=== PATIENT | male | born 1995 | race Two or more races ===

== ENCOUNTER 2020-08-09 18:55 | Emergency (ER) | payer MEDICAID, SELFPAY ==
--- NOTE | ~2020-08-09 | US_ITS ---
EXAMINATION: ANKLE ULTRASOUND CLINICAL INFORMATION: Lower extremity pain with question of Achilles tendon rupture COMPARISON: Ankle radiographs earlier today TECHNIQUE: Linear ultrasound transducer was used to examine the area of the patient's pain in the Achilles tendon. FINDINGS: No abnormality is seen. No evidence of tendon rupture. US/US extremity nonvascular lion IMPRESSION: No significant abnormality is seen
--- NOTE | ~2020-08-09 | XR_ITS ---
EXAMINATION: XR ANKLE, LEFT CLINICAL INFORMATION: Injury COMPARISON: 05/24/2013 TECHNIQUE: AP, lateral, and mortise views of the left ankle. FINDINGS: The bones and soft tissues are normal. No fracture. Alignment is anatomic. Joint spaces are maintained. No joint effusion. XR/XR ankle LT min 3V IMPRESSION: Normal left ankle.
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
[2020-08-09 19:26] VITALS: BP 117/71; BP 150/98; PULSE 69; PULSE 88; RESP 18; TEMP 36; O2SAT 100; O2SAT 99; BMI 29.7
--- NOTE | 2020-08-09 20:52 | ED_ITS ---
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 States that he stepped into a hole his heel went down and his foot was hyperflexed, felt a popping almost ripping feeling in the back of his Achilles tendon and calf. He is unable to bear weight. Does not report any other injuries. MD complaint: leg injury and ankle injury Onset (ago): hour(s) (Within the hour of arrival) Type of Injury: hyperflexion Place: work Severity: severe Severity scale (1-10): 10 Relieving factors: nothing Exacerbating factors: weight bearing, movement and palpation Context: walking Associated symptoms: snap/pop sensation and unable to bear weight Other symptoms: none Related Data Previous Rx's Medication Instructions Recorded oxycodone 5 mg PO Q6H PRN #10 tab 08/09/20 Allergies Allergy/AdvReac Type Severity Reaction Status Date / Time No Known Allergies Allergy Verified 08/09/20 19:26 Review of Systems Review of Systems: Constitutional: No Fever, No Chills ENT/Mouth: No Ear Pain, No Hoarseness, No sore throat Eyes: No Eye Pain, No Swelling, No Redness, No Foreign Body Cardiovascular: No Chest Pain, No SOB Respiratory: No Cough, No Dyspnea Gastrointestinal: No Nausea, No Vomiting, No Diarrhea, No abdominal Pain Genitourinary: No Dysuria, No Hematuria Musculoskeletal: positive left ankle, Achilles, and calf pain, No Myalgias, No Joint Swelling Skin: No Skin lacerations, No rash Neuro: No Weakness, No Numbness, No Paresthesias, No Loss of Consciousness, No Dizziness, No Headache Psych: No Anxiety/Panic, No Depression Heme/Lymph: no easy bruising, no Lymphadenopathy Endocrine: No Polyuria, No Polydipsia Yes all other systems are reviewed and are negative [facility] Past Medical History Attestation statement: The following information was validated with the patient. Source: old records reviewed Social History Social History Advance Directives: No Advance Directives Information Provided: Yes Physical Exam Vital Signs: Vital Signs: Last Vital Signs Temp 97.5 F 06/15/21 23:14 Pulse 75 08/09/20 23:14 Resp 16 08/09/20 23:14 BP 120/74 08/09/20 23:14 Pulse Ox 99 08/09/20 23:14 Body Mass Index 29.7 Appearance: Alert. Oriented X3. No acute distress. Eyes: Pupils equal, round and reactive to light. ENT: Pharynx normal. Neck: Normal inspection. Neck supple. CVS: Normal heart rate and rhythm. Pulses normal. Respiratory: No respiratory distress. Breath sounds normal. Abdomen: Soft and nontender. Skin: Skin warm and dry. Normal skin color. Normal skin turgor. Extremities: Decreased range of motion with flexion and extension internal and external rotation, of left foot and ankle, significant calf tenderness to pressure and palpation, no notable space noted to the Achilles. Neuro: No motor deficit. No sensory deficit. Course Course Course Narrative: 25-year-old male presents with suspected Left Achilles tendon rupture, will ultrasound. Ultrasound is negative. However patient's presentation is positive. Will place in a boot, nonweightbearing, crutches. Discussion with orthopedic PA, plan is for them to follow-up in the office. Patient verbalized understanding of and agrees to plan of care discharge home. Consultations Consultation #1: Jayjay MDM - Extremity Injury (Lower) MDM Narrative Medical decision making narrative: Achilles tendon rupture Differential Diagnosis Differential diagnosis: Likely ankle sprain and strain and ankle fracture Medical Records Attestation: I reviewed the patient's medical records. Imaging Data ultrasound: Attestation: I personally reviewed and interpreted this imaging study as follows: Radiologist's impression: EXAMINATION: ANKLE ULTRASOUND CLINICAL INFORMATION: Lower extremity pain with question of Achilles tendon rupture COMPARISON: Ankle radiographs earlier today TECHNIQUE: Linear ultrasound transducer was used to examine the area of the patient's pain in the Achilles tendon. FINDINGS: No abnormality is seen. No evidence of tendon rupture. US/US extremity nonvascular lion IMPRESSION: No significant abnormality is seen ankle x-ray: Attestation: I personally reviewed and interpreted this imaging study as follows: Radiologist's impression: EXAMINATION: XR ANKLE, LEFT CLINICAL INFORMATION: Injury COMPARISON: 05/24/2013 TECHNIQUE: AP, lateral, and mortise views of the left ankle. FINDINGS: The bones and soft tissues are normal. No fracture. Alignment is anatomic. Joint spaces are maintained. No joint effusion. XR/XR ankle LT min 3V IMPRESSION: Normal left ankle. Discharge Plan Discharge Clinical Impression: Achilles tendon rupture Patient Disposition: Home, Self-Care Instructions: Achilles Tendon Rupture (ED), Achilles Tendinitis (ED) Additional Instructions: You were evaluated for injury to the left lower extremity. It is suspicious for a Achilles tendon rupture. Your ultrasound was negative however your presentation is positive. Please wear the walker boot. Do not put weight on that foot. Use crutches for all ambulation. We prescribed oxycodone which is a narcotic. This medication has high risk for addiction and abuse. Do not drive or operate machinery while taking this medication. This medication is constipating, please use MiraLax and Colace to help soften stools. Follow-up with orthopedics tomorrow. I discussed her case with Lynne ARBOLEDA. she is expecting your call. Thank you for choosing this emergency department for evaluation. Please follow-up with primary care physician as needed. Return to the emergency department for any new, concerning, or worsening symptoms. Prescriptions: New oxycodone 5 mg tablet 5 mg PO Q6H PRN (Reason: pain) Qty: 10 RF: 0 Referrals: Lynne Ro PA-C [[facility]] - 2 days (Achilles tendon rupture) Stand Alone Forms: Work/School Release Interventions: ED Discharge Assessment Last Done: 08/09/20 23:14 Discharge Date/Time: 08/09/20 23:15
[2020-08-09] MEDS: oxyCODONE HCl Immed Release 5 MG TABLET PO (21:23)
[2020-08-09 23:14] VITALS: BP 120/74; PULSE 75; RESP 16; TEMP 36.4; O2SAT 99
== END 2020-08-09 23:15 | disposition home or self-care (01) ==
PROVIDERS: Emergency Provider Internal Medicine
DX: S86.012A Strain of left Achilles tendon, initial encounter (principal); X50.1XXA Overexertion from prolonged static or awkward postures, initial encounter; Y93.89 Activity, other specified; Y92.89 Other specified places as the place of occurrence of the external cause; Y99.0 Civilian activity done for income or pay
CPT/HCPCS: 73610; 76882; 99283; 99284

== ENCOUNTER → 2020-08-11 09:06 | Outpatient (BNVA) | payer MEDICAID, SELFPAY | PROVIDERS: Visit Provider Orthopaedic Surgery | DX: S86.012A Strain of left Achilles tendon, initial encounter (principal) | CPT/HCPCS: 99202 ==

== ENCOUNTER 2020-09-19 14:00 | Outpatient (RCR) | payer MEDICAID, SELFPAY ==
--- NOTE | 2020-08-26 14:19 | MHC.PT.EP ---
[facility] [place] Office [place] Office [place] Office [address] [phone] F: [phone] F: [phone] F: [phone] F: [phone] Physical Therapy Plan of Care Date of Evaluation: Date of Surgery: Diagnosis: L Achilles tendon sprain Assessment: Manfred is a 25 y.o. male referred to PT for L Achilles sprain. On PT examination he presents with 8/10 pain, TTP L Achilles insertion & Deltoid ligament, increased L ankle swelling, decreased L Ankle ROM, decreased L ankle strength, gait deviation, and postural abnormalities. He would benefit from skilled PT for the aforementioned impairements to improve his tolerance for ADL's and work related tasks such as walking, stair negotiation, showering, self care, and cooking, and cleaning. He is motivated for PT. Frequency and Duration: The patient will be seen 2x week for 6 weeks Short Term Goals: 1. In 3 weeks patient will demonstrate improved ROM in all planes to improve his tolerance for dressing and self care. 2. In 3 weeks patient will spend more than 50% of time outside of the walking boot. Skilled Nursing Goals: 1. In 4 weeks patient will demonstrate improved gait mechanics and ability to self correct, demonstrated by the teach back method. 2. In 6 weeks patient will be independent with HEP for symptom management following d/c. Treatment Plan: Modalities to reduce pain, spasms and effusion. Manual therapy to restore motion and function. Therapeutic exercise to improve strength and flexibility. Neuromuscular re-education for posture and balance. Therapeutic activities to return to functional activities of daily living. Electronically signed by: Estela Peña PT, DPT Please sign and return to therapist. Thank you for your referral.
--- NOTE | 2020-09-28 14:24 | MHC.PT.DC ---
[facility] [place] Office [place] Office [place] Office [address] [facility] [phone] F: [phone] F: [phone] F: [phone] F: [phone] Physical Therapy Discharge Report Diagnosis: L Achilles tendon sprain Date of Surgery: Date of Evaluation: 08/26/20 Date of Discharge: 09/28/20 Treatments to Date: 5 Cancellations to Date: 1 No Shows to Date: 5 Discharge Status: Visit Non-compliance Discharge Summary: The patient has had poor visit compliance. He was still reporting high levels of pain but his range and strength were improving. He was tolerating a slow progression to more weightbearing activities including proprioception, balance, and stability work. Per [facility] policy he is being discharged for non-compliance. Electronically signed by: Estela Peña PT, DPT Please sign and return to therapist. Thank you for your referral.
== END 2020-09-28 14:24 | disposition home or self-care (01) ==
LOC: HO.PT 14:00
PROVIDERS: Visit Provider Orthopaedic Surgery
DX: S86.019A Strain of unspecified Achilles tendon, initial encounter (principal)
CPT/HCPCS: 97110; 97112; 97116; 97161; 97530

== ENCOUNTER → 2020-09-26 13:48 | Outpatient (BNVA) | payer MEDICAID, SELFPAY | PROVIDERS: Visit Provider Orthopaedic Surgery | DX: S86.012A Strain of left Achilles tendon, initial encounter (principal); X58.XXXA Exposure to other specified factors, initial encounter; Y93.9 Activity, unspecified; Y92.9 Unspecified place or not applicable; Y99.8 Other external cause status | CPT/HCPCS: 99212 ==

== ENCOUNTER 2021-05-25 10:55 | Emergency (ER) | payer MEDICAID, SELFPAY ==
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
[2021-05-25 11:20] VITALS: BP 121/78; PULSE 100; RESP 16; TEMP 36.8; O2SAT 98; BMI 30.4
[2021-05-25 11:40] LABS: MANUAL DIFF FLAG NO
[2021-05-25 11:41] LABS: Basophils Absolute Auto 0.1 X10*3/uL (0.0-0.2); Basophils Percent Auto 0.8 % (0-2); Eosinophils Absolute Auto 0.1 X10*3/uL (0.0-0.4); Eosinophils Percent Auto 0.8 % (0-4); Hematocrit 44.4 % (42.0-52.0); Hemoglobin 14.3 g/dl (14.0-18.0); Imm Gran Abs Auto 0.02 X10*3/uL (0.00-0.03); Imm Gran Pct Auto 0.3 % (0.0-0.4); Lymphocytes Absolute Auto 1.9 X10*3/uL (1.2-4.9); Lymphocytes Percent Auto 32.5 % (20-40); Mean Corpuscular HGB Conc 32.2 g/dl (31.0-36.0); Mean Corpuscular Hemoglobin 24.2 pg (27.0-33.0); Mean Corpuscular Volume 75.3 fL (80.0-98.0); Mean Platelet Volume 9.7 fL (9.4-12.4); Monocytes Absolute Auto 0.7 X10*3/uL (0.1-1.2); Neutrophils Absolute Auto 3.2 x10*3/uL (2.0-8.3); Neutrophils Percent Auto 54.6 % (45-73); Platelet Count 277 X10*3/uL (160-400); White Blood Count 5.9 X10*3/uL (4.8-10.8)
[2021-05-25 11:59] LABS: Ethanol < 10 mg/dL
[2021-05-25 12:02] LABS: Alanine Aminotransferase 17 U/L (0-40); Albumin Level 4.7 g/dL (3.5-5.0); Alkaline Phosphatase 80 U/L (39-117); Anion Gap 13 (12-20); Aspartate Amino Transferase 17 U/L (5-37); Bilirubin Direct 0.2 mg/dL (0.0-0.5); Bilirubin Total 0.5 mg/dL (0.0-1.0); Blood Urea Nitrogen 9 mg/dL (9-16); Carbon Dioxide 25 mmol/L (22-29); Chloride 107 mmol/L (96-108); Creatinine Clr Calc Pharmacy 132.2; Estimated Glomerular Filt Rate > 60; Glucose Random 98 mg/dL (60-115); Magnesium 2.1 mg/dL (1.6-2.6); Potassium 4.3 mmol/L (3.3-5.1); Sodium 141 mmol/L (135-145); Total Protein 8.1 g/dL (6.5-8.0)
[2021-05-25 12:04] LABS: COVID-19 Test Negative (Negative)
--- NOTE | 2021-05-25 14:43 | MHC.CARE ---
Pt is a 25 year old [place] speaking male who is presently involved in a romantic relationship.? Pt is previously unknown to the CARE Team.? Today, pt called this facility and spoke with the CARE Team, he was advised that he should come to the ED and be seen.? Pt arrived moments later with a complaint of depression and thoughts of self-harm.? CARE Team met with pt after being medically cleared to determine appropriate treatment recommendations, he reports having depression/sadness since the passing of his grandmother in 2017.? He reports being close to his grandmother and her loss was difficult for him.? He stated that his depression was ?manageable? until recently.? Pt stated that approximately a month ago his god son?s mother (Cousin?s former partner) overdosed.? He stated that her Mother took custody of the child (3 years old) and he hasn?t seen him since.? Pt reports that he was close to his godson and had a very good relationship with the child.? This loss of contact with the child has been especially difficult for him. He denies SI, HI, , AVH, and self-harm urges and any history of.? He reports that yesterday he had a fleeting thought of driving his vehicle into something.? The thought entered his mind, and then left.? He reports that he had no intent of doing so but it was concerning enough that he called and later arrived at this facility.? Pt does not appear to have intent to attempt to complete suicide. He reports his sleep as fair, frequently awakening during the night due to racing thoughts and an overactive mind.? He reports his appetite as poor, some days he eats, others he eats some, and yet others he will skip meals.? 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 He reports that he has no therapist or PCP.? He has never been on any medications, has no mental illness diagnosis, no hx of treatment for mental illness.? He reports having had a therapist in high school for anxiety, which he struggles with.? He reports having tried to secure a therapist through [facility] but the wait list is daunting.? He has a great deal of family supports in the form of his Mother, girlfriend, and his cousin Willem. Pt is interested in securing a therapist. Plan is for pt to be discharged home with a safety plan and directions on securing a PCP and therapist.? This disposition was discussed with and agreed upon by CARE Gem Expert Darian DEMPSEY, ED provider Esa Munoz, and pt?s nurse TOÑO Moreau. Step 1: Warning signs: ?? 1.? Depression? 2.? Anxiety? Step 2: ? Internal coping strategies - Things I can do to take my mind off my problems without contacting another person: 1.? Play Video Games? 2.? Watch TV? 3.? Go for a ride? Step 3: People and social settings that can provide distraction: 1.? Name? Nashalee? Phone ? 2.? Name? Isaiah? Phone ? 3.? Place?? Look out at the water? 4.? Place?? [employer] to overlook the city?Step 4: People whom I can ask for help: ? 1.? Name Nashalee? Phone ? 2.? Name Isaiah? Phone ? 3.? Name Willem? Phone ?Step 5: Professionals or agencies I can contact during a crisis: ??? 1.? Clinician Name ???Phone ? 2.? Clinician Name? ?? Phone ? 3.? Suicide Prevention Lifeline: 5-511-107-GDCL (5431) 4.? Crisis Text Line: Text HOME to 317-203 5.? Local Emergency Service Phone/Address: Step 6: Making the environment safe: ? 2.? CARE Team will follow up with a phone call to check in this tomorrow.??? Step 7: Recommendations: ? 1.? Establish a bedtime routine, and try your best not to over sleep. Make your bed a space where only sleeping happens, and set up a separate comfortable space in your house where you can relax, but not sleep. Use an codey in your smart phone to set up a routine for when you fall asleep, wake up, and how long you sleep. a.? Please refer to DBT sleep hygiene for additional information 2.? Contact your employer?s Human Resources department and ask if there is an EAP (Employee Assistance Program) for employees.? If there is, ask for the number and call the Employee Assistance Program to schedule an appointment. 3.? Find a Primary Care Provider. (See list provided) 4.? To find a therapist, go to [facility] on the Internet at: https://www.psychologyCCP Games.com/us On this website, you can search for therapists in your area that will take your insurance (Have your insurance card ready and with you just in case it?s needed) 5.? Avoid using substances as a means of coping with grief/loss.
--- NOTE | 2021-05-26 13:26 | MHC.CARE ---
CARE Team speaks with pt who reports that he is feeling ?Down?.? He is distracting himself through video games.? He has left a message with his employer?s Human Resources Department inquiring about EAP services.? He has not yet reached out to potential providers but stated that he intends to do so and will be using the list provided by CARE Team.? Pt has not yet searched for a therapist via psychology today but stated he will be doing so.? Pt denies any SI, HI, , and self-harm urges. CARE Team discussed with pt the need to secure a PCP and therapist and why.? CARE Team discussed with pt the crisis numbers provided to pt and advised him that should he begin to feel like he did yesterday to utilize those numbers, specifically the [facility] number.? Pt was also advised that he could return to the ED should he begin feeling that way again.
== END 2021-05-25 14:44 | disposition home or self-care (01) ==
PROVIDERS: Physician Assistant; Emergency Provider Emergency Medicine
DX: F32.A Depression, unspecified (principal); R45.851 Suicidal ideations; F41.9 Anxiety disorder, unspecified; Z20.822 Contact with and (suspected) exposure to COVID-19
CPT/HCPCS: 36415; 80048; 80076; 82077; 83735; 85025; 87635; 99284; 99285

== ENCOUNTER 2021-08-30 13:03 | Emergency (ER) | payer OTHER, MEDICAID, SELFPAY ==
--- NOTE | 2021-08-30 13:17 | ED.GENADULT ---
HPI - General Adult General Chief complaint: Fall Stated complaint: fall,dizzy,weak Time Seen by Provider: 08/30/21 13:17 Source: patient Mode of arrival: EMS Limitations: no limitations History of Present Illness HPI narrative: Patient no significant past medical history was at work felt dizzy lightheaded side nausea and weakness denies any alcohol or drug use just feeling weak. No fever no chills patient denies any anxiety or stress Related Data Previous Rx's Medication Instructions Recorded oxycodone 5 mg tablet 5 mg PO Q6H PRN pain #10 tabs 08/09/20 Allergies Allergy/AdvReac Type Severity Reaction Status Date / Time No Known Allergies Allergy Verified 09/26/20 14:03 Review of Systems Review of Systems: Yes all other systems are reviewed and are negative [facility] Past Medical History Medical History Achilles tendon sprain Social History Social History Alcohol intake: current Alcohol intake frequency: holidays/special occasions only Patient Tobacco Use Status: Never used Tobacco Use of substances other than those prescribed or required for medical reasons: Yes Substance Use Type: Marijuana Substance Use Frequency: Monthly Substance Use Frequency Other:: has not in a few days Last Used Substance: Days (ago) Advance Directives: No Advance Directives Information Provided: No Current occupational status: employed Current occupation: rt handed/[employer] Physical Exam ED Vital Signs: Vital Signs - 24 hr 08/30/21 13:29 08/30/21 14:00 Temperature 98.0 F Pulse Rate 75 72 Respiratory Rate 16 16 Blood Pressure 116/73 116/75 Pulse Oximetry 98 98 Oxygen Delivery Method Room Air Room Air BMI result Body Mass Index 30.4 Appearance: Alert. Oriented X3. No acute distress. Eyes: PERRLA, No Nystagmus ENT: Pharynx normal. Oral Mucosa moist Neck: Normal inspection. Neck supple. CVS: Normal heart rate and rhythm. Pulses normal. Respiratory: No respiratory distress. Equal air entry bilateral, no wheezing/rales/rhonchi Abdomen: Soft and nontender. Bowel sounds are present, no mass palpable, no CVA tenderness Skin: Skin warm and dry. Normal skin color. Normal skin turgor. Extremities: No lower extremity edema. No calf tenderness Neuro: Oriented X 3. No motor deficit. No sensory deficit.No cerebellar signs , cranial nerves II-XII intact Medical Decision Making MDM Narrative Medical decision making narrative: Patient with atypical symptoms? Psychogenic versus substance abuse but patient refused we checked the UA , also possible patient had heat exhaustion Patient feeling better after IV fluids and discharge patient home Lab Data Lab results reviewed: Yes I reviewed the patient's lab results. Result diagrams: 08/30/21 14:19 08/30/21 14:19 Labs: Lab Results 08/30/21 08/30/21 08/30/21 Range/Units 14:19 14:19 14:19 WBC 8.3 (4.8-10.8) X10*3/uL RBC 5.38 (4.60-5.80) X10*6/uL Hgb 12.3 L (14.0-18.0) g/dl Hct 39.0 L (42.0-52.0) % MCV 72.5 L (80.0-98.0) fL MCH 22.9 L (27.0-33.0) pg MCHC 31.5 (31.0-36.0) g/dl RDW 14.3 (11.0-16.0) % Plt Count 253 (160-400) X10*3/uL MPV 9.6 (9.4-12.4) fL Immature Gran % (Auto) 0.4 (0.0-0.4) % Neut % (Auto) 66.5 (45-73) % Lymph % (Auto) 20.8 (20-40) % [place] % (Auto) 11.2 H (2-11) % Eos % (Auto) 0.7 (0-4) % Baso % (Auto) 0.4 (0-2) % Lymph # (Auto) 1.7 (1.2-4.9) X10*3/uL [place] # (Auto) 0.9 (0.1-1.2) X10*3/uL Eos # (Auto) 0.1 (0.0-0.4) X10*3/uL Baso # (Auto) 0.0 (0.0-0.2) X10*3/uL Abs Immat Gran (auto) 0.03 (0.00-0.03) X10*3/uL Absolute Neuts (auto) 5.5 (2.0-8.3) x10*3/uL Absolute Nucleated RBC 0.000 (0.0-0.012) X10*3/uL Nucleated RBC % (auto) 0.0 (0.0-0.2) /100WBC Sodium 141 (135-145) mmol/L Potassium 3.4 D (3.3-5.1) mmol/L Chloride 109 H (96-108) mmol/L Carbon Dioxide 27 (22-29) mmol/L Anion Gap 8 L (12-20) BUN 8 L (9-16) mg/dL Creatinine 0.86 (0.5-1.4) mg/dL Estim Creat Clear Calc 144.8 Estimated GFR > 60 Random Glucose 106 (60-115) mg/dL Calcium 9.0 D (8.4-10.2) mg/dL Total Bilirubin 0.6 (0.0-1.0) mg/dL AST 18 (5-37) U/L ALT 16 (0-40) U/L Alkaline Phosphatase 69 (39-117) U/L Total Creatine Kinase 214 H (38-174) U/L Total Protein 6.8 (6.5-8.0) g/dL Albumin 4.2 (3.5-5.0) g/dL Urine Color Urine Appearance Urine pH (5.0-8.0) Ur Specific [place] (1.005-1.025) Urine Protein (NEG-TRACE) MG/DL Urine Glucose (UA) (NEG) MG/DL Urine Ketones (NEG) MG/DL Urine Blood (NEG) Urine Nitrite (NEG) Ur Leukocyte Esterase (NEG) Urine Opiates Screen (Not Detect) Urine Fentanyl Screen (Not Detect) Ur Barbiturates Screen (Not Detect) Ur Phencyclidine Scrn (Not Detect) Ur Amphetamines Screen (Not Detect) U Benzodiazepines Scrn (Not Detect) Urine Cocaine Screen (Not Detect) U Marijuana (THC) Screen (Not Detect) COVID-19 ([facility]) Negative (Negative) COVID-19 Clin Com See Note 08/30/21 08/30/21 Range/Units 14:58 14:58 WBC (4.8-10.8) X10*3/uL RBC (4.60-5.80) X10*6/uL Hgb (14.0-18.0) g/dl Hct (42.0-52.0) % MCV (80.0-98.0) fL MCH (27.0-33.0) pg MCHC (31.0-36.0) g/dl RDW (11.0-16.0) % Plt Count (160-400) X10*3/uL MPV (9.4-12.4) fL Immature Gran % (Auto) (0.0-0.4) % Neut % (Auto) (45-73) % Lymph % (Auto) (20-40) % [place] % (Auto) (2-11) % Eos % (Auto) (0-4) % Baso % (Auto) (0-2) % Lymph # (Auto) (1.2-4.9) X10*3/uL [place] # (Auto) (0.1-1.2) X10*3/uL Eos # (Auto) (0.0-0.4) X10*3/uL Baso # (Auto) (0.0-0.2) X10*3/uL Abs Immat Gran (auto) (0.00-0.03) X10*3/uL Absolute Neuts (auto) (2.0-8.3) x10*3/uL Absolute Nucleated RBC (0.0-0.012) X10*3/uL Nucleated RBC % (auto) (0.0-0.2) /100WBC Sodium (135-145) mmol/L Potassium (3.3-5.1) mmol/L Chloride (96-108) mmol/L Carbon Dioxide (22-29) mmol/L Anion Gap (12-20) BUN (9-16) mg/dL Creatinine (0.5-1.4) mg/dL Estim Creat Clear Calc Estimated GFR Random Glucose (60-115) mg/dL Calcium (8.4-10.2) mg/dL Total Bilirubin (0.0-1.0) mg/dL AST (5-37) U/L ALT (0-40) U/L Alkaline Phosphatase (39-117) U/L Total Creatine Kinase (38-174) U/L Total Protein (6.5-8.0) g/dL Albumin (3.5-5.0) g/dL Urine Color YELLOW Urine Appearance CLEAR Urine pH 6.5 (5.0-8.0) Ur Specific [place] 1.020 (1.005-1.025) Urine Protein NEG (NEG-TRACE) MG/DL Urine Glucose (UA) NEG (NEG) MG/DL Urine Ketones 15 (NEG) MG/DL Urine Blood NEG (NEG) Urine Nitrite NEG (NEG) Ur Leukocyte Esterase NEG (NEG) Urine Opiates Screen Not Detected (Not Detect) Urine Fentanyl Screen Not Detected (Not Detect) Ur Barbiturates Screen Not Detected (Not Detect) Ur Phencyclidine Scrn Not Detected (Not Detect) Ur Amphetamines Screen Not Detected (Not Detect) U Benzodiazepines Scrn Not Detected (Not Detect) Urine Cocaine Screen Not Detected (Not Detect) U Marijuana (THC) Screen POSITIVE H (Not Detect) COVID-19 ([facility]) (Negative) COVID-19 Clin Com ECG Data Attestation: I personally reviewed and interpreted this ECG as follows: Interpretation: Normal sinus rhythm heart rate 69 beats per minute PACs present normal QRS interval no acute ischemic changes Discharge Plan Discharge Clinical Impression: Heat exhaustion, Vasovagal near syncope Patient Disposition: Home, Self-Care Instructions: Heat Exhaustion (ED), Near Syncope (ED) Additional Instructions: Drink plenty of fluids Stay in shaded area Follow-up with PCP if any concerns Prescriptions: No Action oxycodone 5 mg tablet 5 mg PO Q6H PRN (Reason: pain) Qty: 10 0RF Rx Instructions: Achilles tendon rupture
[2021-08-30 13:29] VITALS: BP 116/73; BP 128/82; PULSE 75; PULSE 90; RESP 16; TEMP 36.7; O2SAT 100; O2SAT 98; BMI 30.4
[2021-08-30] MEDS: 0.9 % Sodium Chloride 1,000 ML 999 ML IV (13:46)
--- NOTE | 2021-08-30 13:50 | ECG_ITS ---
Test Reason : syncope Blood Pressure : / mmHG Vent. Rate : 069 BPM Atrial Rate : 069 BPM P-R Int : 160 ms QRS Dur : 094 ms QT Int : 420 ms P-R-T Axes : 032 021 002 degrees QTc Int : 450 ms Sinus rhythm with Premature atrial complexes Otherwise normal ECG No previous ECGs available Referred By: Maurice Dockery Electronically Signed By:Karlos Wan
[2021-08-30 14:00] VITALS: BP 116/75; PULSE 72; RESP 16; O2SAT 98
[2021-08-30 14:23] LABS: MANUAL DIFF FLAG NO
[2021-08-30 14:24] LABS: Basophils Percent Auto 0.4 % (0-2); Eosinophils Absolute Auto 0.1 X10*3/uL (0.0-0.4); Eosinophils Percent Auto 0.7 % (0-4); Hemoglobin 12.3 g/dl (14.0-18.0); Imm Gran Abs Auto 0.03 X10*3/uL (0.00-0.03); Imm Gran Pct Auto 0.4 % (0.0-0.4); Lymphocytes Absolute Auto 1.7 X10*3/uL (1.2-4.9); Lymphocytes Percent Auto 20.8 % (20-40); Mean Corpuscular HGB Conc 31.5 g/dl (31.0-36.0); Mean Corpuscular Hemoglobin 22.9 pg (27.0-33.0); Mean Corpuscular Volume 72.5 fL (80.0-98.0); Mean Platelet Volume 9.6 fL (9.4-12.4); Monocytes Absolute Auto 0.9 X10*3/uL (0.1-1.2); Monocytes Percent Auto 11.2 % (2-11); Neutrophils Absolute Auto 5.5 x10*3/uL (2.0-8.3); Neutrophils Percent Auto 66.5 % (45-73); Platelet Count 253 X10*3/uL (160-400); Red Blood Count 5.38 X10*6/uL (4.60-5.80); Red Cell Distribution Width 14.3 % (11.0-16.0); White Blood Count 8.3 X10*3/uL (4.8-10.8)
[2021-08-30 14:43] LABS: COVID-19 Test Negative (Negative)
[2021-08-30 14:48] LABS: Alanine Aminotransferase 16 U/L (0-40); Albumin Level 4.2 g/dL (3.5-5.0); Alkaline Phosphatase 69 U/L (39-117); Anion Gap 8 (12-20); Aspartate Amino Transferase 18 U/L (5-37); Bilirubin Total 0.6 mg/dL (0.0-1.0); Blood Urea Nitrogen 8 mg/dL (9-16); Carbon Dioxide 27 mmol/L (22-29); Chloride 109 mmol/L (96-108); Creatinine Clr Calc Pharmacy 144.8; Estimated Glomerular Filt Rate > 60; Glucose Random 106 mg/dL (60-115); Potassium 3.4 mmol/L (3.3-5.1); Sodium 141 mmol/L (135-145); Total Protein 6.8 g/dL (6.5-8.0)
[2021-08-30 15:17] LABS: Appearance Urine CLEAR; Color Urine YELLOW; Glucose Urine UA NEG (NEG); Leukocyte Esterase Urine NEG (NEG); Nitrite Urine NEG (NEG); PH 6.5 (5.0-8.0); Urine Blood NEG (NEG); Urine Ketones 15 MG/DL (NEG); Urine Protein NEG (NEG-TRACE)
[2021-08-30 15:29] LABS: Amphetamine Screen Urine Not Detected (Not Detect); Barbiturates, Urine Not Detected (Not Detect); Benzodiazepines Screen Urine Not Detected (Not Detect); Cannabinoid Screen Urine POSITIVE (Not Detect); Cocaine Screen Urine Not Detected (Not Detect); Fentanyl, urine Not Detected (Not Detect); Opiate Screen Urine Not Detected (Not Detect); Phencyclidine Screen Urine Not Detected (Not Detect)
[2021-08-30 15:57] VITALS: BP 105/80; PULSE 72; RESP 14; TEMP 37.1; O2SAT 97
== END 2021-08-30 16:39 | disposition home or self-care (01) ==
PROVIDERS: Emergency Provider Internal Medicine
DX: R55 Syncope and collapse (principal); T67.5XXA Heat exhaustion, unspecified, initial encounter; X58.XXXA Exposure to other specified factors, initial encounter; Z20.822 Contact with and (suspected) exposure to COVID-19; F12.90 Cannabis use, unspecified, uncomplicated; Y93.9 Activity, unspecified; Y92.59 Other trade areas as the place of occurrence of the external cause; Y99.0 Civilian activity done for income or pay
CPT/HCPCS: 36415; 80053; 80307; 81003; 82550; 85025; 87635; 93005; 96360; 99284

== ENCOUNTER 2021-09-19 15:06 | Outpatient (REF) | payer MEDICAID, SELFPAY ==
--- NOTE | ~2021-09-19 | US_ITS ---
EXAMINATION: US ABDOMEN COMPLETE CLINICAL INFORMATION: Right upper quadrant pain. COMPARISON: CT abdomen and pelvis with contrast dated 04/17/2018. TECHNIQUE: Real-time imaging of the abdominal viscera. FINDINGS: PANCREAS: Normal. ABDOMINAL AORTA: The proximal, mid, and distal segments are normal in caliber. INFERIOR VENA CAVA: Visualized portions are normal. LIVER: The liver is normal in size. The liver contour is normal. There is mild increased liver echogenicity. No focal hepatic lesion. There is no intrahepatic biliary duct dilatation seen. GALLBLADDER: The gallbladder is physiologically distended. There are 2 echogenic stones in the neck of the gallbladder, nonmobile in decubitus position. No evidence of gallbladder wall thickening or pericholecystic fluid. COMMON BILE DUCT: Normal in caliber measuring 0.3 cm in diameter. RIGHT KIDNEY: Normal. No hydronephrosis. No renal calculi or focal parenchymal lesions. The kidney measures 10.6 cm in maximum dimension. LEFT KIDNEY: Normal. No hydronephrosis. No renal calculi or focal parenchymal lesions. The kidney measures 11.5 cm in maximum dimension. SPLEEN: Normal. The spleen measures 9.3 cm in maximum dimension. FREE FLUID: None. US/US abdomen complete IMPRESSION: Cholelithiasis without wall thickening. No wall thickness, pericholecystic fluid collection or tenderness. Mildly echogenic liver. Rest of the abdominal ultrasound is unremarkable.
== END 2021-09-19 15:07 | disposition home or self-care (01) ==
LOC: HO.US 15:06
PROVIDERS: Visit Provider Emergency Medicine
DX: R10.11 Right upper quadrant pain (principal)
CPT/HCPCS: 76700

== ENCOUNTER 2021-11-03 11:40 | Outpatient (REF) | payer MEDICAID, SELFPAY | END 2021-11-03 11:41 | disposition home or self-care (01) | LOC: HO.LAB 11:40 | PROVIDERS: Visit Provider Nurse Practitioner | DX: R11.2 Nausea with vomiting, unspecified (principal); K80.20 Calculus of gallbladder without cholecystitis without obstruction | CPT/HCPCS: 99202; 99212 ==

== ENCOUNTER 2021-11-07 09:36 | Outpatient (REF) | payer MEDICAID, SELFPAY ==
[2021-11-07 10:40] LABS: MANUAL DIFF FLAG NO
[2021-11-07 12:10] LABS: Basophils Absolute Auto 0.1 X10*3/uL (0.0-0.2); Basophils Percent Auto 0.7 % (0-2); Eosinophils Absolute Auto 0.2 X10*3/uL (0.0-0.4); Eosinophils Percent Auto 2.3 % (0-4); Hemoglobin 13.7 g/dl (14.0-18.0); Imm Gran Abs Auto 0.03 X10*3/uL (0.00-0.03); Imm Gran Pct Auto 0.4 % (0.0-0.4); Lymphocytes Absolute Auto 1.6 X10*3/uL (1.2-4.9); Lymphocytes Percent Auto 21.4 % (20-40); Mean Corpuscular HGB Conc 31.1 g/dl (31.0-36.0); Mean Corpuscular Hemoglobin 22.5 pg (27.0-33.0); Mean Corpuscular Volume 72.2 fL (80.0-98.0); Mean Platelet Volume 10.5 fL (9.4-12.4); Monocytes Absolute Auto 0.9 X10*3/uL (0.1-1.2); Monocytes Percent Auto 12.3 % (2-11); Neutrophils Absolute Auto 4.8 x10*3/uL (2.0-8.3); Neutrophils Percent Auto 62.9 % (45-73); Platelet Count 284 X10*3/uL (160-400); Red Blood Count 6.09 X10*6/uL (4.60-5.80); Red Cell Distribution Width 15.2 % (11.0-16.0); White Blood Count 7.7 X10*3/uL (4.8-10.8)
[2021-11-07 12:37] LABS: Alanine Aminotransferase 17 U/L (0-40); Albumin Level 4.6 g/dL (3.5-5.0); Alkaline Phosphatase 82 U/L (39-117); Anion Gap 13 (12-20); Aspartate Amino Transferase 17 U/L (5-37); Bilirubin Total 0.7 mg/dL (0.0-1.0); Blood Urea Nitrogen 10 mg/dL (9-16); C Reactive Protein 0.53 mg/dL (< or = 0.50); Calcium 9.9 mg/dL (8.4-10.2); Carbon Dioxide 28 mmol/L (22-29); Chloride 104 mmol/L (96-108); Estimated Glomerular Filt Rate > 60; Glucose Random 82 mg/dL (60-115); Potassium 4.3 mmol/L (3.3-5.1); Sodium 141 mmol/L (135-145); Total Protein 7.5 g/dL (6.5-8.0)
[2021-11-09 12:57] LABS: Transglutaminase Ab IgG <1.0 U/mL; Transglutaminase IgA <1.0 U/mL
== END 2021-11-07 09:37 | disposition home or self-care (01) ==
LOC: HO.LAB 09:36
PROVIDERS: Absent Provider Nurse Practitioner; Visit Provider Surgery
DX: R11.2 Nausea with vomiting, unspecified (principal); K80.20 Calculus of gallbladder without cholecystitis without obstruction
CPT/HCPCS: 36415; 80053; 85025; 86140; 86364; 99202

== ENCOUNTER 2021-11-13 11:49 | Outpatient (REF) | payer MEDICAID, SELFPAY ==
[2021-11-13 14:26] LABS: Adenovirus F 40/41 Not Detected (Not Detect.); Astrovirus Not Detected (Not Detect.); Campylobacter Not Detected (Not Detect.); Cryptosporidium Not Detected (Not Detect.); Cyclospora cayetanensis Not Detected (Not Detect.); E. coli EAEC Not Detected (Not Detect.); E. coli EPEC Not Detected (Not Detect.); E. coli ETEC Not Detected (Not Detect.); E. coli STEC Not Detected (Not Detect.); Entamoeba histolytica Not Detected (Not Detect.); Giardia lamblia Not Detected (Not Detect.); Norovirus GI/GII Not Detected (Not Detect.); Plesiomonas shigelloides Not Detected (Not Detect.); Rotavirus A Not Detected (Not Detect.); Salmonella Not Detected (Not Detect.); Sapovirus Not Detected (Not Detect.); Shigella sp./EIEC Not Detected (Not Detect.); Vibrio Not Detected (Not Detect.); Vibrio Cholerae Not Detected (Not Detect.); Yersinia enterocolitica Not Detected (Not Detect.)
[2021-11-19 18:47] LABS: Pancreatic Elastase-1 >500 mcg/g
== END 2021-11-13 11:50 | disposition home or self-care (01) ==
LOC: HO.LNP 11:49
PROVIDERS: Visit Provider Nurse Practitioner
DX: R11.2 Nausea with vomiting, unspecified (principal); K80.20 Calculus of gallbladder without cholecystitis without obstruction
CPT/HCPCS: 82656; 87507

== ENCOUNTER → 2021-11-20 08:18 | Outpatient (REF) | payer MEDICAID, SELFPAY ==
--- NOTE | ~2021-11-20 | NM_ITS ---
EXAMINATION: BILIARY TRACT IMAGING STUDY WITH CCK ALTERNATIVE (SUPPLEMENT-STIMULATED CHOLESCINTIGRAPHY). CLINICAL INFORMATION: Nausea and vomiting.. COMPARISON: Abdominal ultrasound done on 09/19/2021.. TECHNIQUE: Serial gamma scintillation camera images were obtained over the abdomen for a total observation period of 60 minutes following the intravenous administration of 5 mCi Tc-99m mebrofenin. FINDINGS: There is good concentration of activity in the liver by 5 minutes post injection. Biliary activity is visualized by 8 minutes. The gallbladder is well visualized by 15 minutes. Small bowel is well visualized by 55 minutes. At 60 minutes post radiopharmaceutical injection, following injection of 8 ounces of Ensure, an additional 60 minutes of images were obtained. There is good emptying of the gallbladder. By the end of the study there is good clearance of activity from the liver and visualization of diffuse small bowel activity. The calculated gallbladder ejection fraction is 53% (normal gallbladder ejection fraction is greater than 33%). Please note that due to non-availability of CCK, alternative methodology using a lactose-free Fatty-meal food supplement (8 ounces of Ensure) was used (Reference article: Journal of nuclear medicine 2003; 44:8209-8533). NM/NM hepatobiliary wo pharm IMPRESSION: Visualization of the gallbladder is evidence of a patent cystic duct and strong evidence against the diagnosis of acute cholecystitis. The common bile duct is patent. Gallbladder emptying and ejection fraction are normal. Liver function appears normal.
== END ==
LOC: HO.NUCMED 08:18
PROVIDERS: Visit Provider Nurse Practitioner
DX: K80.20 Calculus of gallbladder without cholecystitis without obstruction (principal); R11.2 Nausea with vomiting, unspecified
CPT/HCPCS: 78226; A9537

== ENCOUNTER → 2021-12-01 11:26 | Outpatient (BNVA) | payer MEDICAID, SELFPAY | PROVIDERS: Visit Provider Surgery | DX: K80.20 Calculus of gallbladder without cholecystitis without obstruction (principal); R11.2 Nausea with vomiting, unspecified; R19.7 Diarrhea, unspecified; K21.9 Gastro-esophageal reflux disease without esophagitis | CPT/HCPCS: 99212 ==

== ENCOUNTER 2022-01-21 04:53 | Inpatient (IN) | payer MEDICAID, SELFPAY ==
[2022-01-21] VITALS (9 sets, daily range): BP systolic 108–148; BP diastolic 66–84; PULSE 57–74; RESP 12–20; TEMP 36.6–36.7; O2SAT 97–99; BMI 28.8; BMI 30.9
--- NOTE | ~2022-01-21 | CT_ITS ---
EXAMINATION: CT ABDOMEN AND PELVIS WITH CONTRAST CLINICAL INFORMATION: Right upper quadrant pain. Rule out biliary disease. COMPARISON: 04/17/2018 TECHNIQUE: Multidetector volumetric images were obtained from the superior aspect of the liver through the pubic symphysis following administration 85 mL of Omnipaque 350 intravenous contrast. Sagittal and coronal reformatted images were obtained on the technologist's workstation. Oral contrast: No This CT examination was performed using dose optimization techniques as appropriate, variously including the following: *Automated exposure control *Adjustment of mA and/or kV according to patient size (this includes techniques or standardized protocols for targeted exams where dose is matched to indication/reason for exam; i.e. extremities or head) *Use of iterative reconstruction technique DLP: 642 mGy-cm FINDINGS: LUNG BASES: The visualized lung bases are unremarkable. LIVER, GALLBLADDER, AND BILIARY TREE: The liver is normal in size, shape, and attenuation. No focal hepatic lesion or biliary ductal dilatation is present. Normally distended gallbladder. No stones are seen. There appears to be a tiny amount of pericholecystic fluid, particularly near the fundus. PANCREAS: Unremarkable. SPLEEN: Unremarkable. ADRENAL GLANDS: Unremarkable. KIDNEYS AND URETERS: The kidneys are normal in size, shape, and attenuation. No hydronephrosis, hydroureter, or calculi seen. No perinephric stranding. BLADDER: Unremarkable. GASTROINTESTINAL TRACT: The stomach is unremarkable. Normal caliber small bowel. No obstruction. Normal appendix. No colonic wall thickening or inflammation. No free air or free fluid. ABDOMINAL WALL: No significant hernia is appreciated. LYMPH NODES: Normal. VASCULAR: Unremarkable. PELVIC VISCERA: The prostate and seminal vesicles are unremarkable. OSSEOUS STRUCTURES: Unremarkable. CT/CT abdomen pelvis w IV con IMPRESSION: 1. There appears to be a tiny amount of pericholecystic fluid, particularly near the fundus. No stones are seen. Consider further evaluation with ultrasound. 2. No biliary ductal dilatation. Normal appearance of the liver. Fleischner guidelines were followed.
--- NOTE | ~2022-01-21 | US_ITS ---
EXAMINATION: US ABDOMEN LIMITED CLINICAL INFORMATION: Pain. COMPARISON: None TECHNIQUE: Real-time imaging of the right upper quadrant abdominal viscera. FINDINGS: PANCREAS: Normal. LIVER: Normal. The liver is normal in size. The liver contour is normal. Parenchymal echogenicity is normal. No focal hepatic lesion. There is no intrahepatic biliary duct dilatation seen. There is hepatopedal flow seen in the portal vein. GALLBLADDER: There are 2 echogenic stones. Echogenic impacted stones seen in the neck measuring 1.2 x 0.9 x 1.0 cm. The gallbladder is physiologically distended without evidence of stones, sludge, polyps, wall thickening or pericholecystic fluid. COMMON BILE DUCT: Normal in caliber measuring 0.23 cm in diameter. RIGHT KIDNEY: Normal. No hydronephrosis. No renal calculi or focal parenchymal lesions. The kidney measures 9.9 cm in maximum dimension. FREE FLUID: None. US/US abdomen limited IMPRESSION: 1. Cholelithiasis with an impacted stone in the neck. No wall thickening or pericholecystic fluid collection seen. 2. Visualized pancreas, liver, CBD and right kidney appears unremarkable.
[2022-01-21 05:22] LABS: MANUAL DIFF FLAG NO
[2022-01-21 05:23] LABS: Basophils Absolute Auto 0.1 X10*3/uL (0.0-0.2); Basophils Percent Auto 0.6 % (0-2); Eosinophils Absolute Auto 0.4 X10*3/uL (0.0-0.4); Eosinophils Percent Auto 3.3 % (0-4); Hematocrit 43.2 % (42.0-52.0); Hemoglobin 13.7 g/dl (14.0-18.0); Imm Gran Abs Auto 0.03 X10*3/uL (0.00-0.03); Imm Gran Pct Auto 0.3 % (0.0-0.4); Lymphocytes Absolute Auto 3.9 X10*3/uL (1.2-4.9); Mean Corpuscular HGB Conc 31.7 g/dl (31.0-36.0); Mean Corpuscular Hemoglobin 22.7 pg (27.0-33.0); Mean Corpuscular Volume 71.5 fL (80.0-98.0); Mean Platelet Volume 9.5 fL (9.4-12.4); Monocytes Percent Auto 8.8 % (2-11); Neutrophils Absolute Auto 5.7 x10*3/uL (2.0-8.3); Platelet Count 281 X10*3/uL (160-400); Red Blood Count 6.04 X10*6/uL (4.60-5.80); Red Cell Distribution Width 14.6 % (11.0-16.0); White Blood Count 11.1 X10*3/uL (4.8-10.8)
--- NOTE | 2022-01-21 05:35 | PC.NURSE ---
Pt states that RUQ abdominal pain began about an hour ago. He tried to drink some water but states that it resulted in no relief of symptoms. Pain is accompanied by nausea. Pt denies vomiting, constipation, diarrhea. Pt describes pain as a sharp shooting pain. Pt seems a bit restless and is guarding the affected area.
[2022-01-21 05:52] LABS: Alanine Aminotransferase 10 U/L (0-40); Albumin Level 4.5 g/dL (3.5-5.0); Alkaline Phosphatase 67 U/L (39-117); Anion Gap 15 (12-20); Aspartate Amino Transferase 16 U/L (5-37); Bilirubin Total 0.3 mg/dL (0.0-1.0); Blood Urea Nitrogen 13 mg/dL (9-16); Calcium 9.6 mg/dL (8.4-10.2); Carbon Dioxide 24 mmol/L (22-29); Chloride 103 mmol/L (96-108); Creatinine Clr Calc Pharmacy 138.2; Estimated Glomerular Filt Rate > 60; Glucose Random 103 mg/dL (60-115); Lipase 25 U/L (8-78); Potassium 3.7 mmol/L (3.3-5.1); Sodium 138 mmol/L (135-145); Total Protein 7.8 g/dL (6.5-8.0)
[2022-01-21] MEDS: 0.9 % Sodium Chloride 1,000 ML 999 ML IV (06:00)
[2022-01-21] MEDS: Ketorolac Tromethamine 15 MG/ML VIAL IVPUSH (06:08)
[2022-01-21] MEDS: ondansetron HCL 4 MG/2 ML VIAL IVPUSH (06:08)
[2022-01-21 06:18] LABS: Appearance Urine Clear; Color Urine Yellow; Glucose Urine UA Negative (Negative); Leukocyte Esterase Urine Negative (Negative); Nitrite Urine Negative (Negative); Urine Blood Negative (Negative); Urine Ketones Negative (Negative); Urine Protein Negative (Neg-Trace)
[2022-01-21 06:21] LABS: COVID-19 Test Negative (Negative); IDNOW Serial# BCCEAD1C
[2022-01-21] MEDS: iohexoL 350 MG/ML 100 ML INFUS..BTL 85 ML IV (06:34)
--- NOTE | 2022-01-21 06:57 | ED.ABDPAIN ---
HPI - Abdominal Pain General Chief Complaint: Abdominal Pain Stated Complaint: R abdominal, back pain Time Seen by Provider: 01/21/22 06:50 Source: patient Mode of arrival: ambulatory Limitations: no limitations History of Present Illness HPI narrative: 26-year-old male came in for evaluation of right-sided abdominal pain. Pain started a week ago, described as a constant dull aching pain to the right side of the abdomen, pain is constant and severe 10/10, no radiation, no relieving factor, no aggravating factor, food does not affect the pain, pain is more less in the right upper quadrant area, had similar symptoms in the past, never had abdominal surgery in the past. Related Data Previous Rx's Medication Instructions Recorded omeprazole 40 mg capsule,delayed 40 mg PO DAILY 30 days #30 caps 11/03/21 release dicyclomine 20 mg tablet 20 mg PO QID 30 days #120 tabs 12/01/21 famotidine 40 mg tablet (Pepcid) 40 mg PO BEDTIME #30 tabs 12/01/21 Allergies Allergy/AdvReac Type Severity Reaction Status Date / Time No Known Allergies Allergy Verified 01/21/22 06:12 Review of Systems Review of Systems All other systems are reviewed and are negative Constitutional: Reports as per HPI and Reports no additional constitutional complaints Eyes: Reports as per HPI and Reports no additional eye complaints Reports system reviewed and no additional complaints, except as documented Cardiovascular: Reports as per HPI and Reports no additional cardiovascular complaints Respiratory: Reports as per HPI and Reports no additional respiratory complaints Gastrointestinal: Reports as per HPI and Reports no additional gastrointestinal complaints Genitourinary: Reports no additional female genitourinary complaints Musculoskeletal: Reports no additional musculoskeletal complaints Skin/Breast: Reports system reviewed and no additional complaints, except as docu Psychiatric: Reports no additional psychiatric complaints Endocrine: Reports no additional endocrine complaints Hematologic/Lymphatic: Reports no additional hematologic/lymphatic complaints Allergic/Immunologic: Reports no additional allergic/immunologic complaints Reports system reviewed and no additional complaints, except as documented and Reports Abnormal speech present [facility] Past Medical History Medical History Achilles tendon sprain Gallstones Social History Social History Household Members: Family Alcohol intake: current Alcohol intake frequency: holidays/special occasions only Alcohol type: beer Patient Tobacco Use Status: Never used Tobacco Smoked in Last 30 Days: No Substance Use Type: Marijuana Substance Use Frequency: Daily Substance Use Frequency Other:: 2x/day Advance Directives: No Advance Directives Information Provided: No Current occupational status: employed Current occupation: rt handed/[employer] Physical Exam ED Vital Signs: Vital Signs - 24 hr 01/21/22 04:58 01/21/22 05:33 01/21/22 06:00 Temperature 97.8 F 98.0 F Pulse Rate 64 58 74 Respiratory Rate 20 15 13 Blood Pressure 131/83 116/72 123/75 Pulse Oximetry 99 98 97 Oxygen Delivery Method Room Air Room Air Room Air 01/21/22 07:27 01/21/22 07:29 Temperature 98.0 F Pulse Rate 68 73 Respiratory Rate 12 14 Blood Pressure 109/68 108/66 Pulse Oximetry 98 97 Oxygen Delivery Method Room Air Room Air BMI result Body Mass Index 28.8 Vital signs have been reviewed as appeared to be correct. Blood pressure normal. Heart rate normal. Respiration rate normal. Temperature normal. Oxygen saturation normal. Appearance: Alert. Oriented X3. No acute distress. Head: Normal external exam. Normocephalic. Atraumatic. No Fletcher signs noted. No raccoon eyes noted Eyes: PERRLA. EOMI. Conjunctiva and sclera normal. Eyelids normal. ENT: TM's Normal. Pharynx normal. Uvula midline. Moist mucous membranes. No trismus noted. No drooling noted. No muffled voice noted. Neck: Normal inspection. Neck supple. FROM. No adenopathy. Thyroid Normal. No meningeal signs. No neck mass noted. CVS: Normal heart rate and rhythm. Heart sound normal. No murmurs noted. Pulses normal throughout. Respiratory: No respiratory distress. Painless inspiration. Breath sounds normal. No wheezes/rales/rhonchi noted. Chest nontender. No accessory muscle usage noted or decreased air movement noted. Abdomen: Soft, right upper quadrant tenderness, no rebound tenderness, no guarding.. Bowel sounds normal in all 4 quadrants. No distention noted. No organomegaly noted. No visible injury noted. Back: No CVA tenderness. Full range of motion noted. Skin: Skin warm and dry. Normal skin color. Normal skin turgor. No rashes/lesions/lacerations noted. Extremities: No lower extremity edema. Extremities exhibit normal range of motion. Extremities nontender. Neuro: Oriented X 3. Cranial nerve exam: II-XII are grossly intact No motor deficit. No sensory deficit. Reflexes normal. Course Course Course Narrative: 26-year-old male came in for right upper quadrant abdominal pain for the past 5 days, patient's exam is consistent with gallbladder problem, ultrasound showed cholelithiasis with impacted gallstone in the gallbladder neck, patient was evaluated in the ED by Dr. Pierre and patient will be admitted to the surgical service. Medications Administered Discontinued Medications Generic Name Dose Route Start Last Admin Trade Name Freq PRN Reason Stop Dose Admin Sodium Chloride 1,000 mls @ 999 mls/hr 01/21/22 05:51 01/21/22 07:24 Ns IV 01/21/22 06:51 Infused .Q1H1M STA Infusion Iohexol 85 ml 01/21/22 06:34 01/21/22 06:34 Iohexol 350 Mg/Ml 100 Ml Infus..Btl IV 01/21/22 06:35 85 ml ONCE ONE Administration Ketorolac Tromethamine 15 mg 01/21/22 05:51 01/21/22 06:08 Ketorolac Tromethamine 15 Mg/Ml Vial IVPUSH 01/21/22 05:52 15 mg ONCE STA Administration Morphine Sulfate 2 mg 01/21/22 08:40 01/21/22 09:03 Morphine Sulfate 2 Mg/Ml Cartridge IVPUSH 01/21/22 08:41 2 mg ONCE ONE Administration Protocol Ondansetron HCl 4 mg 01/21/22 05:51 01/21/22 06:08 Ondansetron Hcl 4 Mg/2 Ml Vial IVPUSH 01/21/22 05:52 4 mg ONCE ONE Administration MDM - Abdominal Pain Lab Data Attestation: I reviewed the patient's lab results. Result diagrams: 01/21/22 05:12 01/21/22 05:12 Labs: Lab Results 01/21/22 01/21/22 01/21/22 Range/Units 05:12 05:12 05:12 WBC 11.1 H (4.8-10.8) X10*3/uL RBC 6.04 H (4.60-5.80) X10*6/uL Hgb 13.7 L (14.0-18.0) g/dl Hct 43.2 (42.0-52.0) % MCV 71.5 L (80.0-98.0) fL MCH 22.7 L (27.0-33.0) pg MCHC 31.7 (31.0-36.0) g/dl RDW 14.6 (11.0-16.0) % Plt Count 281 (160-400) X10*3/uL MPV 9.5 (9.4-12.4) fL Immature Gran % (Auto) 0.3 (0.0-0.4) % Neut % (Auto) 52.0 (45-73) % Lymph % (Auto) 35.0 (20-40) % [place] % (Auto) 8.8 (2-11) % Eos % (Auto) 3.3 (0-4) % Baso % (Auto) 0.6 (0-2) % Lymph # (Auto) 3.9 (1.2-4.9) X10*3/uL [place] # (Auto) 1.0 (0.1-1.2) X10*3/uL Eos # (Auto) 0.4 (0.0-0.4) X10*3/uL Baso # (Auto) 0.1 (0.0-0.2) X10*3/uL Abs Immat Gran (auto) 0.03 (0.00-0.03) X10*3/uL Absolute Neuts (auto) 5.7 (2.0-8.3) x10*3/uL Absolute Nucleated RBC 0.000 (0.0-0.012) X10*3/uL Nucleated RBC % (auto) 0.0 (0.0-0.2) /100WBC Sodium 138 (135-145) mmol/L Potassium 3.7 (3.3-5.1) mmol/L Chloride 103 (96-108) mmol/L Carbon Dioxide 24 (22-29) mmol/L Anion Gap 15 (12-20) BUN 13 (9-16) mg/dL Creatinine 0.88 (0.5-1.4) mg/dL Estim Creat Clear Calc 138.2 Estimated GFR > 60 Random Glucose 103 (60-115) mg/dL Calcium 9.6 (8.4-10.2) mg/dL Total Bilirubin 0.3 (0.0-1.0) mg/dL AST 16 (5-37) U/L ALT 10 (0-40) U/L Alkaline Phosphatase 67 (39-117) U/L Total Protein 7.8 (6.5-8.0) g/dL Albumin 4.5 (3.5-5.0) g/dL Lipase 25 (8-78) U/L Urine Color Urine Appearance Urine pH (5.0-9.0) Ur Specific [place] (1.005-1.025) Urine Protein (Neg-Trace) mg/dL Urine Glucose (UA) (Negative) mg/dL Urine Ketones (Negative) mg/dL Urine Blood (Negative) Urine Nitrite (Negative) Ur Leukocyte Esterase (Negative) COVID-19 ([facility]) Negative (Negative) COVID-19 Clin Com See Note 01/21/22 Range/Units 05:44 WBC (4.8-10.8) X10*3/uL RBC (4.60-5.80) X10*6/uL Hgb (14.0-18.0) g/dl Hct (42.0-52.0) % MCV (80.0-98.0) fL MCH (27.0-33.0) pg MCHC (31.0-36.0) g/dl RDW (11.0-16.0) % Plt Count (160-400) X10*3/uL MPV (9.4-12.4) fL Immature Gran % (Auto) (0.0-0.4) % Neut % (Auto) (45-73) % Lymph % (Auto) (20-40) % [place] % (Auto) (2-11) % Eos % (Auto) (0-4) % Baso % (Auto) (0-2) % Lymph # (Auto) (1.2-4.9) X10*3/uL [place] # (Auto) (0.1-1.2) X10*3/uL Eos # (Auto) (0.0-0.4) X10*3/uL Baso # (Auto) (0.0-0.2) X10*3/uL Abs Immat Gran (auto) (0.00-0.03) X10*3/uL Absolute Neuts (auto) (2.0-8.3) x10*3/uL Absolute Nucleated RBC (0.0-0.012) X10*3/uL Nucleated RBC % (auto) (0.0-0.2) /100WBC Sodium (135-145) mmol/L Potassium (3.3-5.1) mmol/L Chloride (96-108) mmol/L Carbon Dioxide (22-29) mmol/L Anion Gap (12-20) BUN (9-16) mg/dL Creatinine (0.5-1.4) mg/dL Estim Creat Clear Calc Estimated GFR Random Glucose (60-115) mg/dL Calcium (8.4-10.2) mg/dL Total Bilirubin (0.0-1.0) mg/dL AST (5-37) U/L ALT (0-40) U/L Alkaline Phosphatase (39-117) U/L Total Protein (6.5-8.0) g/dL Albumin (3.5-5.0) g/dL Lipase (8-78) U/L Urine Color Yellow Urine Appearance Clear Urine pH 7.0 (5.0-9.0) Ur Specific [place] 1.020 (1.005-1.025) Urine Protein Negative (Neg-Trace) mg/dL Urine Glucose (UA) Negative (Negative) mg/dL Urine Ketones Negative (Negative) mg/dL Urine Blood Negative (Negative) Urine Nitrite Negative (Negative) Ur Leukocyte Esterase Negative (Negative) COVID-19 ([facility]) (Negative) COVID-19 Clin Com Imaging Data CT scan - abdomen: Attestation: I personally reviewed and interpreted this imaging study as follows: Radiologist's impression: 1.? There appears to be a tiny amount of pericholecystic fluid, particularly near the fundus. No stones are seen. Consider further evaluation with ultrasound. 2.? No biliary ductal dilatation. Normal appearance of the liver. Abdominal ultrasound: Attestation: I personally reviewed and interpreted this imaging study as follows: Radiologist's impression: 1.? Cholelithiasis with an impacted stone in the neck. No wall thickening or pericholecystic fluid collection seen. 2.? Visualized pancreas, liver, CBD and right kidney appears unremarkable. ? Discharge Plan Discharge Clinical Impression: Abdominal pain, Cholelithiasis Patient Disposition: Admitted As Inpatient
--- NOTE | 2022-01-21 07:25 | PC.NURSE ---
PT SLEEPING AWAITING FURTHER IMAGING. IV ACCESS RIGHT -PATENT, VSS
[2022-01-21] MEDS: Morphine Sulfate 2 MG/ML CARTRIDGE IVPUSH (09:03)
--- NOTE | 2022-01-21 10:42 | P.HPGS_ITS ---
History of Present Illness History of Present Illness Date of Service: 01/22/22 Chief complaint: gallstones Narrative: Manfred White is a 26 year old male who came to the ER this morning because of right-sided abdominal pain. He says that this woke him up from sleep this morning. He describes this as on the right upper quadrant. he did state that he had some discomfort yesterday as well and the other day on the same side. He says that he had been diagnosed to have gallstones few months ago. He mentions that he has been having some vague abdominal pain for about a year now. He denies any nausea or vomiting. He says that he did not eat well yesterday because of his abdominal discomfort. He denies significant medical problems although he of his records from the ER revealed that he may have had some depression Review of Systems Constitutional: Constitutional: Denies chills and Denies fever(s) Cardiovascular: Cardiovascular: Denies chest pain, Denies dyspnea and Denies dyspnea on exertion Respiratory: Respiratory: Denies cough, Denies dyspnea and Denies dyspnea on exertion Gastrointestinal: Gastrointestinal: Denies hematochezia and Denies change in bowel habits Genitourinary: Genitourinary: Denies hematuria and Denies difficulty urinating Musculoskeletal: Musculoskeletal: Denies back pain and Denies limited range of motion Neurologic: Denies focal weakness and Denies convulsions Psychiatric: Psychiatric: Denies depression and Denies mood swings PMFSH Past Medical History Medical History (Updated 01/21/22 @ 10:45 by Kei Pierre MD) Achilles tendon sprain Depression Gallstones Surgical History Surgical History (Updated 01/22/22 @ 08:27 by Danica Rowe) No history of previous surgery Social History Social History Household Members: Family Housing: Apartment Do you presently have visiting nurse or other home services: No Alcohol intake: current Alcohol intake frequency: a few times a month Alcohol type: beer Patient Tobacco Use Status: Never used Tobacco Smoked in Last 30 Days: No Use of substances other than those prescribed or required for medical reasons: Yes Substance Use Type: Marijuana Substance Use Frequency: Daily Substance Use Frequency Other:: 2x/day Last Used Substance: Just Prior to Admission Currently Displaying Signs/Symptoms of Drug Intoxication Withdrawal: No Any prior treatment program specific to substance use: No Have you been hit, kicked, punched, or otherwise hurt by someone within the past year? If so, by whom?: No Do you feel safe in your current relationship?: Yes Is there a partner from a previous relationship who is making you feel unsafe now?: No Are you made to feel afraid or neglected: No Are you DNR?: No Advance Directives: No Advance Directives Information Provided: No Do you have thoughts of harming others: None Do you have a plan to hurt others: No Plan Recently lost weight without trying: No Eating poorly because of decreased appetite: No Nutrition Risks: No Nutritional Risk Poor oral hygiene: No Current occupational status: employed Current occupation: rt [employer] Meds Allergies Allergy/AdvReac Type Severity Reaction Status Date / Time No Known Allergies Allergy Verified 01/22/22 08:31 Home Medications Medication Instructions Recorded Confirmed Last Taken Type No Known Home Meds 01/21/22 01/22/22 Unknown History Physical Exam Vital Signs: Vital Signs: Last Vital Signs Temp 98.0 F 01/21/22 10:25 Pulse 62 01/21/22 10:25 Resp 14 01/21/22 10:25 BP 122/71 01/21/22 10:25 Pulse Ox 99 01/21/22 10:25 O2 Del Method 01/21/22 10:25 BMI result Body Mass Index 28.8 Const: General: comfortable and no acute distress Orientation/consciousness: patient oriented x3 Neck: Neck: Yes no lymphadenopathy Resp: Auscultation: clear to auscultation bilaterally Cardio: Rhythm: regular rhythm GI: Palpation (GI): Soft to palpation, nontender and no guarding Neuro: General: patient oriented x3 Results Results Labs: Short CBC 01/21/22 Range/Units 05:12 WBC 11.1 H (4.8-10.8) X10*3/uL Hgb 13.7 L (14.0-18.0) g/dl Hct 43.2 (42.0-52.0) % Plt Count 281 (160-400) X10*3/uL BMP 01/21/22 05:12 Sodium 138 Potassium 3.7 Chloride 103 Carbon Dioxide 24 BUN 13 Creatinine 0.88 Calcium 9.6 Liver Function 01/21/22 Range/Units 05:12 Total Bilirubin 0.3 (0.0-1.0) mg/dL AST 16 (5-37) U/L ALT 10 (0-40) U/L Alkaline Phosphatase 67 (39-117) U/L Albumin 4.5 (3.5-5.0) g/dL Urine 01/21/22 Range/Units 05:44 Urine Color Yellow Urine Appearance Clear Urine pH 7.0 (5.0-9.0) Ur Specific [place] 1.020 (1.005-1.025) Urine Protein Negative (Neg-Trace) mg/dL Urine Glucose (UA) Negative (Negative) mg/dL Laboratory Results WBC 11.1 X10*3/uL (4.8-10.8) H 01/21/22 05:12 RBC 6.04 X10*6/uL (4.60-5.80) H 01/21/22 05:12 Hgb 13.7 g/dl (14.0-18.0) L 01/21/22 05:12 Hct 43.2 % (42.0-52.0) 01/21/22 05:12 MCV 71.5 fL (80.0-98.0) L 01/21/22 05:12 MCH 22.7 pg (27.0-33.0) L 01/21/22 05:12 MCHC 31.7 g/dl (31.0-36.0) 01/21/22 05:12 RDW 14.6 % (11.0-16.0) 01/21/22 05:12 Plt Count 281 X10*3/uL (160-400) 01/21/22 05:12 MPV 9.5 fL (9.4-12.4) 01/21/22 05:12 Immature Gran % (Auto) 0.3 % (0.0-0.4) 01/21/22 05:12 Neut % (Auto) 52.0 % (45-73) 01/21/22 05:12 Lymph % (Auto) 35.0 % (20-40) 01/21/22 05:12 [place] % (Auto) 8.8 % (2-11) 01/21/22 05:12 Eos % (Auto) 3.3 % (0-4) 01/21/22 05:12 Baso % (Auto) 0.6 % (0-2) 01/21/22 05:12 Lymph # (Auto) 3.9 X10*3/uL (1.2-4.9) 01/21/22 05:12 [place] # (Auto) 1.0 X10*3/uL (0.1-1.2) 01/21/22 05:12 Eos # (Auto) 0.4 X10*3/uL (0.0-0.4) 01/21/22 05:12 Baso # (Auto) 0.1 X10*3/uL (0.0-0.2) 01/21/22 05:12 Abs Immat Gran (auto) 0.03 X10*3/uL (0.00-0.03) 01/21/22 05:12 Absolute Neuts (auto) 5.7 x10*3/uL (2.0-8.3) 01/21/22 05:12 Absolute Nucleated RBC 0.000 X10*3/uL (0.0-0.012) 01/21/22 05:12 Nucleated RBC % (auto) 0.0 /100WBC (0.0-0.2) 01/21/22 05:12 Sodium 138 mmol/L (135-145) 01/21/22 05:12 Potassium 3.7 mmol/L (3.3-5.1) 01/21/22 05:12 Chloride 103 mmol/L (96-108) 01/21/22 05:12 Carbon Dioxide 24 mmol/L (22-29) 01/21/22 05:12 Anion Gap 15 (12-20) 01/21/22 05:12 BUN 13 mg/dL (9-16) 01/21/22 05:12 Creatinine 0.88 mg/dL (0.5-1.4) 01/21/22 05:12 Estim Creat Clear Calc 138.2 01/21/22 05:12 Estimated GFR > 60 01/21/22 05:12 Random Glucose 103 mg/dL (60-115) 01/21/22 05:12 Calcium 9.6 mg/dL (8.4-10.2) 01/21/22 05:12 Total Bilirubin 0.3 mg/dL (0.0-1.0) 01/21/22 05:12 AST 16 U/L (5-37) 01/21/22 05:12 ALT 10 U/L (0-40) 01/21/22 05:12 Alkaline Phosphatase 67 U/L (39-117) 01/21/22 05:12 Total Protein 7.8 g/dL (6.5-8.0) 01/21/22 05:12 Albumin 4.5 g/dL (3.5-5.0) 01/21/22 05:12 Lipase 25 U/L (8-78) 01/21/22 05:12 Urine Color Yellow 01/21/22 05:44 Urine Appearance Clear 01/21/22 05:44 Urine pH 7.0 (5.0-9.0) 01/21/22 05:44 Ur Specific [place] 1.020 (1.005-1.025) 01/21/22 05:44 Urine Protein Negative mg/dL (Neg-Trace) 01/21/22 05:44 Urine Glucose (UA) Negative mg/dL (Negative) 01/21/22 05:44 Urine Ketones Negative mg/dL (Negative) 01/21/22 05:44 Urine Blood Negative (Negative) 01/21/22 05:44 Urine Nitrite Negative (Negative) 01/21/22 05:44 Ur Leukocyte Esterase Negative (Negative) 01/21/22 05:44 COVID-19 (LAKISHA) Negative (Negative) 01/21/22 05:12 COVID-19 Clin Com See Note 01/21/22 05:12 Impressions Abdomen/Pelvis CT 01/21/22 06:30 IMPRESSION: 1. There appears to be a tiny amount of pericholecystic fluid, particularly near the fundus. No stones are seen. Consider further evaluation with ultrasound. 2. No biliary ductal dilatation. Normal appearance of the liver. Fleischner guidelines were followed. Abdomen Ultrasound 01/21/22 08:15 IMPRESSION: 1. Cholelithiasis with an impacted stone in the neck. No wall thickening or pericholecystic fluid collection seen. 2. Visualized pancreas, liver, CBD and right kidney appears unremarkable. Assessment and Plan (1) Cholelithiasis: Status: Acute His CAT scan shows gallstones without any additional findings of cholecystitis. However, he continues to have right upper quadrant pain. This stone also appears to be in the neck of the gallbladder. I therefore told him that if this is not improved, we we can proceed with laparoscopic cholecystectomy and possible open cholecystectomy. I explained him the technique of these procedures. I reviewed the risks including but not limited to bleeding, infections, injury to bowel, liver and the bile duct, as well as the benefits and alternatives. He says that he has had episodes of this pain for a while so he agrees to be admitted. We may likely proceed with laparoscopic cholecystectomy, possible open cholecystic tomorrow if he continues to be symptomatic. Quality Stroke Does the patient have a stroke diagnosis?: No VTE Prior VTE?: No VTE Risk Level:: Medical - low VTE Device Contraindication: N/A - Device Ordered VTE Drug Contraindication: Treatment Not Indicated Procedures Date of Service Date of Service: 01/21/22
--- NOTE | 2022-01-21 12:40 | PHA.MEDREC ---
Pharmacy Consult ? Medication Reconciliation Pharmacy has completed the medication reconciliation. Patient reports not medications at home. Clau Castellanos, CeciD
[2022-01-21] MEDS: Lactated Ringers 1,000 ML 80 ML IVCONT ×2 (13:18→23:04)
--- NOTE | 2022-01-21 14:07 | PC.NURSE ---
pt reports tolerant pain levels. ambulates steady in ed. no nausea,no vomiting. remains on a clear diet
[2022-01-21 15:28] LABS: IDNOW Serial# 16C4AD1C; Influenza A Negative (Negative); Influenza B2 Negative (Negative)
--- NOTE | 2022-01-21 17:02 | PC.NURSE ---
REPORTS 5/10 PAIN, DECLINES MEDICATION
[2022-01-22] VITALS (13 sets, daily range): BP systolic 105–150; BP diastolic 64–93; PULSE 54–89; RESP 16–20; TEMP 36.2–37; O2SAT 93–100
[2022-01-22] MEDS: oxyCODONE HCl Immed Release 5 MG TABLET PO ×3 (00:39→22:04)
--- NOTE | 2022-01-22 09:11 | HO.ANESPROP2 ---
[facility] Active Problems Active Problems: All Active Problems (Updated 01/21/22 @ 10:45 by Kei Pierre MD) Partial tear of left Achilles tendon (Acute) Nausea and vomiting (Acute) Myopia (Acute) Environmental allergies (Acute) Gallstones (Acute) Diarrhea (Acute) GERD (gastroesophageal reflux disease) (Acute) Abdominal pain (Acute) Cholelithiasis (Acute) Depression (Acute) Achilles tendon sprain (Acute) Past Medical History Medical History (Updated 01/21/22 @ 10:45 by Kei Pierre MD) Achilles tendon sprain Depression Gallstones Family History Family history of problems with anesthesia: No Surgical History Surgical History (Updated 01/22/22 @ 08:27 by Danica Rowe) No history of previous surgery History of Problems with Anesthesia: No Social History Social History Household Members: Family Housing: Apartment Do you presently have visiting nurse or other home services: No Alcohol intake: current Alcohol intake frequency: a few times a month Alcohol type: beer Patient Tobacco Use Status: Never used Tobacco Smoked in Last 30 Days: No Use of substances other than those prescribed or required for medical reasons: Yes Substance Use Type: Marijuana Substance Use Frequency: Daily Substance Use Frequency Other:: 2x/day Last Used Substance: Just Prior to Admission Currently Displaying Signs/Symptoms of Drug Intoxication Withdrawal: No Any prior treatment program specific to substance use: No Have you been hit, kicked, punched, or otherwise hurt by someone within the past year? If so, by whom?: No Do you feel safe in your current relationship?: Yes Is there a partner from a previous relationship who is making you feel unsafe now?: No Are you made to feel afraid or neglected: No Are you DNR?: No Advance Directives: No Advance Directives Information Provided: No Do you have thoughts of harming others: None Do you have a plan to hurt others: No Plan Recently lost weight without trying: No Eating poorly because of decreased appetite: No Nutrition Risks: No Nutritional Risk Poor oral hygiene: No Current occupational status: employed Current occupation: rt [employer] Meds Allergies Allergy/AdvReac Type Severity Reaction Status Date / Time No Known Allergies Allergy Verified 01/22/22 08:31 Active Medications: Current Medications Lactated Ringer's (Lr) 1,000 mls @ 80 mls/hr IVCONT .[id number] [facility] Last Admin: 01/21/22 23:04 Dose: 80 mls/hr Morphine Sulfate (Morphine Sulfate 2 Mg/Ml Cartridge) 3 mg IVPUSH ONCE PRN; Protocol PRN Reason: Pain, Severe (Pain Scale 7-10) Ondansetron HCl (Ondansetron Hcl 4 Mg/2 Ml Vial) 4 mg IVPUSH Q8H PRN PRN Reason: nausea Oxycodone HCl (Oxycodone Hcl Immed Release 5 Mg Tablet) 5 mg PO Q6H PRN PRN Reason: Pain, Moderate (Pain Scale 4-6 Last Admin: 01/22/22 00:39 Dose: 5 mg Sodium Chloride (0.9 % Sodium Chloride Flush 3 Ml Syringe) 3 ml IVFLUSH QSHIFT [facility] Last Admin: 01/22/22 08:35 Dose: Not Given Home Medications Medication Instructions Recorded Confirmed Last Taken Type No Known Home Meds 01/21/22 01/22/22 Unknown History Exam Exam Date and Time: January 22, 2022 0911 Height,Weight and Vital Signs: Height 5 ft 8 in Weight 92.1 kg Last Vital Signs Temp 98.0 F 01/22/22 08:32 Pulse 60 01/22/22 08:32 Resp 16 01/22/22 08:32 BP 121/77 01/22/22 08:32 Pulse Ox 100 01/22/22 08:32 O2 Del Method 01/22/22 08:32 Pertinent Lab Results Pertinent Lab Results: Laboratory Tests 01/21/22 01/21/22 01/21/22 05:12 05:12 05:12 WBC 11.1 H RBC 6.04 H Hgb 13.7 L Hct 43.2 MCV 71.5 L MCH 22.7 L MCHC 31.7 RDW 14.6 Plt Count 281 MPV 9.5 Immature Gran % (Auto) 0.3 Neut % (Auto) 52.0 Lymph % (Auto) 35.0 [place] % (Auto) 8.8 Eos % (Auto) 3.3 Baso % (Auto) 0.6 Lymph # (Auto) 3.9 [place] # (Auto) 1.0 Eos # (Auto) 0.4 Baso # (Auto) 0.1 Abs Immat Gran (auto) 0.03 Absolute Neuts (auto) 5.7 Absolute Nucleated RBC 0.000 Nucleated RBC % (auto) 0.0 Sodium 138 Potassium 3.7 Chloride 103 Carbon Dioxide 24 Anion Gap 15 BUN 13 Creatinine 0.88 Estim Creat Clear Calc 138.2 Estimated GFR > 60 Random Glucose 103 Calcium 9.6 Total Bilirubin 0.3 AST 16 ALT 10 Alkaline Phosphatase 67 Total Protein 7.8 Albumin 4.5 Lipase 25 Urine Color Urine Appearance Urine pH Ur Specific [place] Urine Protein Urine Glucose (UA) Urine Ketones Urine Blood Urine Nitrite Ur Leukocyte Esterase COVID-19 ([facility]KISHA) Negative COVID-19 Clin Com See Note Influenza Type A (GOSIA) Influenza Type B (GOSIA) Influenza A & B Note 01/21/22 01/21/22 05:44 14:57 WBC RBC Hgb Hct MCV MCH MCHC RDW Plt Count MPV Immature Gran % (Auto) Neut % (Auto) Lymph % (Auto) [place] % (Auto) Eos % (Auto) Baso % (Auto) Lymph # (Auto) [place] # (Auto) Eos # (Auto) Baso # (Auto) Abs Immat Gran (auto) Absolute Neuts (auto) Absolute Nucleated RBC Nucleated RBC % (auto) Sodium Potassium Chloride Carbon Dioxide Anion Gap BUN Creatinine Estim Creat Clear Calc Estimated GFR Random Glucose Calcium Total Bilirubin AST ALT Alkaline Phosphatase Total Protein Albumin Lipase Urine Color Yellow Urine Appearance Clear Urine pH 7.0 Ur Specific [place] 1.020 Urine Protein Negative Urine Glucose (UA) Negative Urine Ketones Negative Urine Blood Negative Urine Nitrite Negative Ur Leukocyte Esterase Negative COVID-19 (LAKISHA) COVID-19 Clin Com Influenza Type A (GOSIA) Negative Influenza Type B (GOSIA) Negative Influenza A & B Note See Note Airway Mallampati Class: II TM Dist: >3cm Neck ROM: Full Assessment and Plan Assessment Anesthesia Assessment: Anesthesia Plan Discussed and Chart Reviewed Final Anesthetic Review Family History of Problems with Anesthesia: No History of Problems with Anesthesia: No NPO: Yes ASA Class: II and Emergency Final Preanesthetic Review: No Changes in Pt Med Stat, Meds/Allgs Chart Reviewed, Consent Obtained/Reviewed and Anes Risks/Benef Reviewed Patient Risk: Intermediate Procedure Risk: Intermediate Anesthetic Plan Anesthetic Plan: GA Disposition: Standard PACU
--- NOTE | 2022-01-22 09:30 | MHC.CM.PN ---
CM ATTEMPTED TO MEET W/PT HOWEVER PT OFF UNIT TO SURGERY FOR CHOLECYSTECTOMY, CM TO REVIST.
--- NOTE | 2022-01-22 10:24 | W.PM.OPN ---
Operative Note Operative Note Date of Service: 01/22/22 Narrative: Preop diagnosis: Gallstones Postop diagnosis: Acute cholecystitis Procedure: Laparoscopic cholecystectomy Surgeon: Kei Pierre MD assistant activities director: NKECHI Hayes The patient is a 26-year-old male admitted yesterday for right upper quadrant pain with note of a gallstone in the neck of the gallbladder. In view of his pain, I explained to him that it would may be best to proceed with cholecystectomy. He understood the technique of laparoscopic cholecystectomy and possible open cholecystectomy. He was aware of the risks, benefits, and alternatives He was brought to the operating room and placed supine on the table under general anesthesia via endotracheal tube. The abdomen is prepped and draped in the usual sterile fashion. A surgical time-out was done. The patient received Cefotan 2 g IV preoperatively. I made a short supraumbilical incision using blade 15. This was carried down through the full-thickness of the skin and subcutaneous fat down to the fascia. The fascia was incised. The peritoneum was entered and through this incision, a Venkat port was introduced. Pneumoperitoneum was introduced to a pressure of 15 was hg. From here on the rest of the procedure was done under vision with the 10 mm laparoscope. With laparoscopic visualization, I proceeded to place a 5/12 mm port in the epigastric area below the subcostal margin. Two 5 mm or introduced a small incisions below the subcostal margin along the entire actual aligned the midclavicular line were. Graspers were placed through these working ports. The patient was placed in head-up and [id number] position. I was able to visualize the gallbladder. This was edematous and edematous and distended consistent with acute cholecystitis. I applied a grasper at the fundus to retract this cephalad. Another grasper supplied to the pouch of the gallbladder to retract this laterally. The stone was seen at the neck and this was moved to allow better grasping. I proceeded to gently dissect the gallbladder using the [place] dissector to remove fibrous and roll tissue. I circumferentially dissected the neck. The confluence of the neck of the gallbladder with the cystic duct was therefore well-defined. By doing so I was able to give a critical view of the hepatocystic triangle. There were no other tubular structures in this area except for what appeared to be the cystic artery. I therefore applied clips on the cystic duct with 2 clips being fly distally. The cystic duct was transected between clips using Endo scissors. I applied clips on the cystic artery and this was transected between clips with Endo scissors as well. Two clips had been applied distally. With traction on the gallbladder , I was able to then clearly visualize the hilum and the interface of the gallbladder with the liver. I divided across the hilum with the electrocautery spatula. I incised the peritoneum of the gallbladder using these spatula and carefully define a plane of dissection between the gallbladder wall and the liver bed. I the gallbladder from the liver bed along this well-defined plane all the way to the fundus. Again there was note of significant edema of the gallbladder wall from acute cholecystitis The gallbladder was completely and was retrieved through an endobag through the umbilical incision. I reinserted all ports and re-insufflated. I examined the nerve dissection. There is no evidence of any bleeding. I observed all 4 quadrants. There is no evidence of any bowel injury nor bile leak. There was no bleeding seen again the subhepatic space. With him a stasis ensured, I desufflated through the port sites. I removed all ports under vision with the laparoscope. The umbilical port was removed last. The fascia of the umbilical incision was closed with [id number] Dexon 0 stitch. Skin closure was achieved on all incisions using Dexon for subcu tunneling sutures. Steri-Strips and dressings were applied All incisions were infiltrated with Marcaine 0.5% for postop analgesia. The procedure was completed. The patient tolerated the procedure well. There were no immediate complications. Initial and final counts of sponges and instruments were correct. Estimated blood loss was about 20 cc The patient was extubated without difficulty and transferred to the recovery room with stable vital signs.
--- NOTE | 2022-01-22 10:39 | P.CONAN_ITS ---
Documented by User: Thomas Mcfadden MD 01/23/22 12:22 [facility] Past Medical History Medical History (Updated 01/21/22 @ 10:45 by Kei Pierre MD) Achilles tendon sprain Depression Gallstones Surgical History Surgical History (Updated 01/23/22 @ 08:46 by Kristina Hayes PA-C) No history of previous surgery Social History Social History Household Members: Family Housing: Apartment Do you presently have visiting nurse or other home services: No Alcohol intake: current Alcohol intake frequency: a few times a month Alcohol type: beer Patient Tobacco Use Status: Never used Tobacco Smoked in Last 30 Days: No Use of substances other than those prescribed or required for medical reasons: Yes Substance Use Type: Marijuana Substance Use Frequency: Daily Substance Use Frequency Other:: 2x/day Last Used Substance: Just Prior to Admission Currently Displaying Signs/Symptoms of Drug Intoxication Withdrawal: No Any prior treatment program specific to substance use: No Have you been hit, kicked, punched, or otherwise hurt by someone within the past year? If so, by whom?: No Do you feel safe in your current relationship?: Yes Is there a partner from a previous relationship who is making you feel unsafe now?: No Are you made to feel afraid or neglected: No Are you DNR?: No Advance Directives: No Advance Directives Information Provided: No Do you have thoughts of harming others: None Do you have a plan to hurt others: No Plan Recently lost weight without trying: No Eating poorly because of decreased appetite: No Nutrition Risks: No Nutritional Risk Poor oral hygiene: No service: No Current occupational status: employed Current occupation: [employer] Meds Allergies Allergy/AdvReac Type Severity Reaction Status Date / Time No Known Allergies Allergy Verified 01/22/22 08:31 Assessment and Plan Assessment Anesthesia Assessment: Anesthesia Plan Discussed and Chart Reviewed Final Anesthetic Review NPO: Yes ASA Class: II Final Preanesthetic Review: No Changes in Pt Med Stat, Meds/Allgs Chart Reviewed, Consent Obtained/Reviewed and Anes Risks/Benef Reviewed Patient Risk: Intermediate Procedure Risk: Intermediate Assessment/Block/Sedation in SS: Assess/Block/Sedation-SS Anesthetic Plan Anesthetic Plan: GA and Agree w/ Assess. and Plan Disposition: Standard PACU Documented by User: Carley Oshea MD PMF Active Problems Active Problems: All Active Problems (Updated 01/21/22 @ 10:45 by Kei Pierre MD) Partial tear of left Achilles tendon (Acute) Nausea and vomiting (Acute) Myopia (Acute) Environmental allergies (Acute) Gallstones (Acute) Diarrhea (Acute) GERD (gastroesophageal reflux disease) (Acute) Abdominal pain (Acute) Cholelithiasis (Acute) Depression (Acute) Achilles tendon sprain (Acute) Past Medical History Medical History (Updated 01/21/22 @ 10:45 by Kei Pierre MD) Achilles tendon sprain Depression Gallstones Family History Family history of problems with anesthesia: No Surgical History Surgical History (Updated 01/23/22 @ 08:46 by Kristina Hayes PA-C) No history of previous surgery History of Problems with Anesthesia: No Social History Social History Household Members: Family Housing: Apartment Do you presently have visiting nurse or other home services: No Alcohol intake: current Alcohol intake frequency: a few times a month Alcohol type: beer Patient Tobacco Use Status: Never used Tobacco Smoked in Last 30 Days: No Use of substances other than those prescribed or required for medical reasons: Yes Substance Use Type: Marijuana Substance Use Frequency: Daily Substance Use Frequency Other:: 2x/day Last Used Substance: Just Prior to Admission Currently Displaying Signs/Symptoms of Drug Intoxication Withdrawal: No Any prior treatment program specific to substance use: No Have you been hit, kicked, punched, or otherwise hurt by someone within the past year? If so, by whom?: No Do you feel safe in your current relationship?: Yes Is there a partner from a previous relationship who is making you feel unsafe now?: No Are you made to feel afraid or neglected: No Are you DNR?: No Advance Directives: No Advance Directives Information Provided: No Do you have thoughts of harming others: None Do you have a plan to hurt others: No Plan Recently lost weight without trying: No Eating poorly because of decreased appetite: No Nutrition Risks: No Nutritional Risk Poor oral hygiene: No service: No Current occupational status: employed Current occupation: [employer] Meds Allergies Allergy/AdvReac Type Severity Reaction Status Date / Time No Known Allergies Allergy Verified 01/22/22 08:31 Active Medications: Current Medications Lactated Ringer's (Lr) 1,000 mls @ 80 mls/hr IVCONT .[id number] REPLACED BY [facility] Last Admin: 01/21/22 23:04 Dose: 80 mls/hr Morphine Sulfate (Morphine Sulfate 2 Mg/Ml Cartridge) 3 mg IVPUSH ONCE PRN; Protocol PRN Reason: Pain, Severe (Pain Scale 7-10) Ondansetron HCl (Ondansetron Hcl 4 Mg/2 Ml Vial) 4 mg IVPUSH Q8H PRN PRN Reason: nausea Oxycodone HCl (Oxycodone Hcl Immed Release 5 Mg Tablet) 5 mg PO Q6H PRN PRN Reason: Pain, Moderate (Pain Scale 4-6 Last Admin: 01/22/22 00:39 Dose: 5 mg Sodium Chloride (0.9 % Sodium Chloride Flush 3 Ml Syringe) 3 ml IVFLUSH QSHIFT REPLACED BY [facility] Last Admin: 01/22/22 08:35 Dose: Not Given Exam Exam Date and Time: January 22, 2022 1039 Height,Weight and Vital Signs: Height 5 ft 8 in Weight 92.1 kg Last Vital Signs Temp 98.0 F 01/22/22 08:32 Pulse 60 01/22/22 08:32 Resp 16 01/22/22 08:32 BP 121/77 01/22/22 08:32 Pulse Ox 100 01/22/22 08:32 O2 Del Method 01/22/22 08:32 Pertinent Lab Results Pertinent Lab Results: Laboratory Tests 01/21/22 01/21/22 01/21/22 05:12 05:12 05:12 WBC 11.1 H RBC 6.04 H Hgb 13.7 L Hct 43.2 MCV 71.5 L MCH 22.7 L MCHC 31.7 RDW 14.6 Plt Count 281 MPV 9.5 Immature Gran % (Auto) 0.3 Neut % (Auto) 52.0 Lymph % (Auto) 35.0 Mora % (Auto) 8.8 Eos % (Auto) 3.3 Baso % (Auto) 0.6 Lymph # (Auto) 3.9 Mora # (Auto) 1.0 Eos # (Auto) 0.4 Baso # (Auto) 0.1 Abs Immat Gran (auto) 0.03 Absolute Neuts (auto) 5.7 Absolute Nucleated RBC 0.000 Nucleated RBC % (auto) 0.0 Sodium 138 Potassium 3.7 Chloride 103 Carbon Dioxide 24 Anion Gap 15 BUN 13 Creatinine 0.88 Estim Creat Clear Calc 138.2 Estimated GFR > 60 Random Glucose 103 Calcium 9.6 Total Bilirubin 0.3 AST 16 ALT 10 Alkaline Phosphatase 67 Total Protein 7.8 Albumin 4.5 Lipase 25 Urine Color Urine Appearance Urine pH Ur Specific [place] Urine Protein Urine Glucose (UA) Urine Ketones Urine Blood Urine Nitrite Ur Leukocyte Esterase COVID-19 (LAKISHA) Negative COVID-19 Clin Com See Note Influenza Type A (GOSIA) Influenza Type B (GOSIA) Influenza A & B Note 01/21/22 01/21/22 05:44 14:57 WBC RBC Hgb Hct MCV MCH MCHC RDW Plt Count MPV Immature Gran % (Auto) Neut % (Auto) Lymph % (Auto) Mora % (Auto) Eos % (Auto) Baso % (Auto) Lymph # (Auto) Mora # (Auto) Eos # (Auto) Baso # (Auto) Abs Immat Gran (auto) Absolute Neuts (auto) Absolute Nucleated RBC Nucleated RBC % (auto) Sodium Potassium Chloride Carbon Dioxide Anion Gap BUN Creatinine Estim Creat Clear Calc Estimated GFR Random Glucose Calcium Total Bilirubin AST ALT Alkaline Phosphatase Total Protein Albumin Lipase Urine Color Yellow Urine Appearance Clear Urine pH 7.0 Ur Specific [place] 1.020 Urine Protein Negative Urine Glucose (UA) Negative Urine Ketones Negative Urine Blood Negative Urine Nitrite Negative Ur Leukocyte Esterase Negative COVID-19 (LAKISHA) COVID-19 Clin Com Influenza Type A (GOSIA) Negative Influenza Type B (GOSIA) Negative Influenza A & B Note See Note Assessment and Plan Final Anesthetic Review Family History of Problems with Anesthesia: No History of Problems with Anesthesia: No
[2022-01-22] MEDS: Lactated Ringers 1,000 ML 80 ML IVCONT (12:18)
[2022-01-22] MEDS: Morphine Sulfate 2 MG/ML CARTRIDGE 3 MG IVPUSH (12:19)
--- NOTE | 2022-01-22 15:32 | PC.NURSE ---
Patient returned from surgery at 1200. Able to stand up to urinate. Medicated for pain. Instructions given on incenive spirometer use. Girlfriend at bedside.
--- NOTE | 2022-01-22 16:25 | PM.EVENT ---
Event Note Date of Service: 01/22/22 Event Note: Seen earlier postop He underwent uneventful laparoscopic cholecystectomy Looks well Stable vital signs Abdomen soft Seems to have good pain management Says he wants to stay overnight Likely DC home tomorrow Diet we ordered
[2022-01-22] MEDS: Acetaminophen 325 MG TABLET 650 MG PO (17:13)
[2022-01-23] VITALS: BP 119/75; PULSE 60; RESP 18; TEMP 36.7; O2SAT 97
[2022-01-23] MEDS: Lactated Ringers 1,000 ML 80 ML IVCONT (00:47)
[2022-01-23] MEDS: Acetaminophen 325 MG TABLET 650 MG PO (01:34)
[2022-01-23] MEDS: oxyCODONE HCl Immed Release 5 MG TABLET PO ×2 (01:36→11:59)
--- NOTE | 2022-01-23 01:55 | PC.NURSE ---
PATIENT IS POD #1 LIZA/LAP AND STATING PAIN LEVEL 9/10 TO ABDOMEN AND SURGI SITES. PAIN MEDICATIONS NOT DUE UNTIL 0400 AND PT NOT WISHING TO TAKE THE MORPHINE. DR JONES WATER AND FIRE TECHNICIAN COVERING AND A TIGER TEXT MESSAGE WAS SENT FOR QUESTION ONE TIME DOSE OF PO OXYCODONE OR SUGGESTION. APPROVED A ONE TIME EXTRA DOSE OF PO OXYCODONE AT THIS TIME. PT MEDICATED WITH OXYCODONE 5MG AND 2 APAP TABS AT 0136 WITH EFFECT PENDING. WILL CONTINUE TO MONITOR. PTS MAR WILL REFLECT A ONE TIME DOSE WITHIN SCHEDULED DOSES.
[2022-01-23 02:38] VITALS: RESP 18
[2022-01-23 02:39] VITALS: RESP 18
[2022-01-23 04:00] VITALS: BP 105/59; PULSE 74; RESP 18; TEMP 36.5; O2SAT 97
[2022-01-23 07:54] VITALS: BP 109/64; PULSE 60; RESP 17; TEMP 36.3; O2SAT 98
--- NOTE | 2022-01-23 08:38 | MHC.CM.PN ---
PATIENT IS FULLY INDEPENDENT WITH ADLS. NO DME OR VNA COVID VACCINATED X 3 AT [facility] HE IS UNABLE TO RECALL HIS PCP NAME. PATIENT IS DC TODAY WITH NO SERVICES. GIRLFRIEND WILL TRANSPORT HOME
--- NOTE | 2022-01-23 08:40 | P.PNGS_ITS ---
Subjective Subjective Date of Service: 01/23/22 <Kristina Hayes PA-C - Last Filed: 01/23/22 08:51> 01/23/22 <Kei Pierre MD - Last Filed: 01/23/22 11:45> Interval history: Feels well. Tolerating solid diet. Pain is well controlled and minimal. He is out of bed and ambulating without difficulty. <Kristina Hayes PA-C - Last Filed: 01/23/22 08:51> Physical Exam Vital Signs: Vital Signs: Last Vital Signs Temp 97.3 F 01/23/22 07:54 Pulse 60 01/23/22 07:54 Resp 17 01/23/22 07:54 BP 109/64 01/23/22 07:54 Pulse Ox 98 01/23/22 07:54 O2 Del Method 01/23/22 07:54 O2 Flow Rate 2 01/22/22 12:00 BMI result Body Mass Index 30.9 <Kristina Hayes PA-C - Last Filed: 01/23/22 08:51> Const: General: comfortable, no acute distress and alert <Kristina Hayes PA-C - Last Filed: 01/23/22 08:51> Orientation/consciousness: patient oriented x3 <Kristina Hayes PA-C - Last Filed: 01/23/22 08:51> Resp: Effort & Inspection: normal respiratory effort <Kristina Hayes PA-C - Last Filed: 01/23/22 08:51> GI: Inspection: No distended and No incision (umbilical dressing saturated and changed, remaining c/d/i) <Kristina Hayes PA-C - Last Filed: 01/23/22 08:51> Palpation (GI): Soft to palpation, nontender (minimal tenderness), no guarding and not rigid <SHONDA Nieto Last Filed: 01/23/22 08:51> Skin: General skin exam: no rashes or lesions noted <SHONDA Nieto Last Filed: 01/23/22 08:51> Neuro: General: patient oriented x3 <SHONDA Nieto Last Filed: 01/23/22 08:51> Objective Data Active Medications Acetaminophen (Acetaminophen 325 Mg Tablet) 650 mg PO Q6H PRN PRN Reason: fever, pain Last Admin: 01/23/22 01:34 Dose: 650 mg Documented By: CORY Lactated Ringer's (Lr) 1,000 mls @ 80 mls/hr IVCONT .[id number] [facility] Last Admin: 01/23/22 00:47 Dose: 80 mls/hr Documented By: CORY Morphine Sulfate (Morphine Sulfate 2 Mg/Ml Cartridge) 3 mg IVPUSH ONCE PRN; Protocol PRN Reason: Pain, Severe (Pain Scale 7-10) Last Admin: 01/22/22 12:19 Dose: 3 mg Documented By: OTF Ondansetron HCl (Ondansetron Hcl 4 Mg/2 Ml Vial) 4 mg IVPUSH Q8H PRN PRN Reason: nausea Oxycodone HCl (Oxycodone Hcl Immed Release 5 Mg Tablet) 5 mg PO Q6H PRN PRN Reason: Pain, Moderate (Pain Scale 4-6 Last Admin: 01/23/22 01:36 Dose: 5 mg Documented By: CORY Sodium Chloride (0.9 % Sodium Chloride Flush 3 Ml Syringe) 3 ml IVFLUSH QSHIFT [facility] Last Admin: 01/23/22 08:28 Dose: Not Given Documented By: OTF Non-Admin Reason: IV Running <Kristina Hayes PA-C - Last Filed: 01/23/22 08:51> Labs CBC & Chem 7: : 01/21/22 05:12 01/21/22 05:12 <SHONDA Nieto Last Filed: 01/23/22 08:51> Procedures Date of Service Date of Service: 01/23/22 <SHONDA Nieto Last Filed: 01/23/22 08:51> Progress Note: A&P Assessment and plan (1) Gallstones: Status: Acute <SHONDA Nieto Last Filed: 01/23/22 08:51> Assessment and Plan: no events overning feels well overall tolerating diet pain well controlled abd soft dressings dry he says he is ready to go home dc instructions explained seen and examined independently <Kei Pierre MD - Last Filed: 01/23/22 11:45> (2) S/P laparoscopic cholecystectomy: Status: Acute <Kristina Hayes PA-C - Last Filed: 01/23/22 08:51> Assessment and Plan: 26 year old male admitted with gallstones now POD #1 s/p lap CCY. He is doing well post operatively and tolerating solid diet with well controlled pain. VSS. Abd exam benign with appropriate post op tenderness, dressings intact. He is doing well and is stable for discharge to home today. He can follow up in the office in [address] Pierre. He understands and is comfortable with the plan. <Kristina Hayes PA-C - Last Filed: 01/23/22 08:51> Time Spent With Patient Time: Total time spent is greater than 50% in coordination of care (as documented) at patient's floor/unit and/or counseling patient: <Kristina Hayes PA-C - Last Filed: 01/23/22 08:51> Quality Stroke Does the patient have a stroke diagnosis?: No <Kristina Hayes PA-C - Last Filed: 01/23/22 08:51> VTE Prior VTE?: No <Kristina Hayes PA-C - Last Filed: 01/23/22 08:51> VTE Risk Level:: Medical - low <Kristina Hayes PA-C - Last Filed: 01/23/22 08:51> VTE Device Contraindication: N/A - Device Ordered <Kristina Hayes PA-C - Last Filed: 01/23/22 08:51> VTE Drug Contraindication: Treatment Not Indicated <SHONDA Nieto Last Filed: 01/23/22 08:51>
--- NOTE | 2022-01-23 08:58 | PM.DS ---
DS: Providers Provider Date of Service: 01/23/22 Date of admission: 01/21/22 10:49 Date of discharge: 01/23/22 Primary care physician: oJse Physician Attending physician on admission: Kei Pierre Attending physician on discharge: Kei Pierre DS: Diagnosis Discharge Diagnosis (1) Gallstones: Status: Acute (2) S/P laparoscopic cholecystectomy: Status: Acute DS: Summary Hospital Course Hospital Course: HPI FROM ADMISSION: Manfred White is a 26 year old male who came to the ER this morning because of right-sided abdominal pain. He says that this woke him up from sleep this morning. He describes this as on the right upper quadrant. he did state that he had some discomfort yesterday as well and the other day on the same side. He says that he had been diagnosed to have gallstones few months ago. He mentions that he has been having some vague abdominal pain for about a year now. He denies any nausea or vomiting. He says that he did not eat well yesterday because of his abdominal discomfort. He denies significant medical problems although he of his records from the ER revealed that he may have had some depression. HOSPITAL COURSE: He was admitted to the surgical service for further treatment of the gallstones. He had a large stone at the neck of the gallbladder and it was discussed with him that if the pain did not improve he would likely require a laparoscopic cholecystectomy. He decided to proceed with this and he was added onto the OR schedule for the following day. On 01/22/22, a laparoscopic cholecystectomy was performed by Dr. Pierre without complication. The patient tolerated the procedure well and was admitted back to the medical/surgical floor for observation. He had an uncomplicated recovery course. On POD #1, he was tolerating a solid diet without nausea or vomiting, his pain was well controlled on analgesics and he was out of bed without difficulty. His abdomen was benign with appropriate post op tenderness and dressings were intact. He felt ready for discharge to home. He was discharged to home on 01/23/22 in stable condition. He is to follow up with Dr. Pierre in office in 2 weeks. Status at Discharge Functional status at discharge: independent ambulation Overall status at discharge: patient is progressing back to baseline Time Spent with Patient Time attestation: Total time spent providing and/or coordinating discharge services: Discharge coordination time: Less than 30 minutes Quality: Safe Use of Opioids Does Pt have an Active Cancer Diagnosis on the Problem List?: No Quality: Stroke Does the patient have a stroke diagnosis?: No Physical Exam Vital Signs: Vital Signs: Last Vital Signs Temp 97.3 F 01/23/22 07:54 Pulse 60 01/23/22 07:54 Resp 17 01/23/22 07:54 BP 109/64 01/23/22 07:54 Pulse Ox 98 01/23/22 07:54 O2 Del Method 01/23/22 07:54 O2 Flow Rate 2 01/22/22 12:00 BMI result Body Mass Index 30.9 Const: General: comfortable, no acute distress and alert Orientation/consciousness: patient oriented x3 GI: Inspection: No distended and Yes incision (dressings c/d/i) Palpation (GI): Soft to palpation, Tenderness to palpation present (GI) (mild, incisional), no guarding and not rigid Skin: General skin exam: no rashes or lesions noted Neuro: General: patient oriented x3 and moves all extremities DS: Data Data Completed and Pending Pending studies at discharge: Pending at discharge 01/22/22 10:18 Surgical [PTH] Routine Discharge Plan Discharge Anticipated Discharge Date/Time: 01/23/22 08:24 Patient Disposition: Home, Self-Care Discharge Diagnosis: s/p laparoscopic cholecystectomy Referrals: Kei Pierre MD [Physician] - 2 Weeks Physician,Jose J [Primary Care Provider] - 1 Week Discharge Medications: New oxycodone 5 mg tablet 5 mg PO Q4H PRN (Reason: pain (scale score 7-10)) Qty: 24 0RF Rx Instructions: Partial Fill upon patient request. Take 1-2 tablets every 4h as needed for pain. ibuprofen 600 mg tablet 600 mg PO TID PRN (Reason: abdominal pain) Qty: 30 0RF Discharge Orders: Discharge Order (Routine); Ordered 01/23/22 Ordered By: Kristina Hayes Diet: Low fat, low cholesterol Activity on Discharge: No heavy lifting Stand Alone Forms: Patient Portal Discharge page, Work/School Release Activity Restrictions/Additional Instructions: If the incision area is tender, you may apply an ice pack for short intervals (No more than 20 minutes on, followed by at least 20 minutes off). Do not apply heat. Do not use creams, lotions, or topical antibiotics unless instructed to do so by your surgeon. These can cause infection or allergic reaction. Ok to shower 24 hours after your surgery. Remove bandaids in 2 days and replace. You have steri strips (small white cloth strips) covering your incision- these will fall off ~1 week. Follow up in office with Dr. Pierre in 2 weeks. ([phone]) No heavy lifting (>10-20lbs) or strenuous activity! Call Your Doctor If: -Your temperature exceeds 101.5? F -You experience excessive pain or swelling -You have an unexpected reaction to medication -You have excessive bleeding -You experience continued vomiting/nausea -Your incision begins to separate -Your incision shows signs of infection such as increased redness, swelling, excessive pain, drainage (light blood or clear fluid is normal) or heat Care Plan Goals: Return to baseline health and gradual return to activity following recovery period. Health Concerns: gallstones Plan of Treatment: S/p laparoscopic cholecystectomy Pain control F/u in office Assessment: Doing well post op
[2022-01-23 11:22] VITALS: BP 122/66; PULSE 100; RESP 18; TEMP 36.6; O2SAT 98
--- NOTE | 2022-01-23 12:21 | HO.POSTANES ---
Post Anesthesia Evaluation Post Anesthesia Evaluation Vital Signs: Vital Signs Temp Pulse Resp BP Pulse Ox O2 Del Method 01/23/22 11:22 97.9 F 100 18 122/66 98 Room Air 01/23/22 07:54 97.3 F 60 17 109/64 98 Room Air 01/23/22 04:00 97.7 F 74 18 105/59 L 97 Room Air 01/23/22 02:39 18 01/23/22 02:38 18 Anesthesia: General Endotracheal-GETA Mental Status: Awake Pain Control: Satisfactory Nausea/Vomiting: None Hydration: Adequate Anesthesia-Related Issues: No Anes. Related Issues
== END 2022-01-23 12:25 | disposition home or self-care (01) | DRG 263 ==
LOC: HO.ED 10:07 → HO.EDOVER 11:01 → HO.S3 16:53
PROVIDERS: Emergency Medicine Emergency Medical Services; Admitting Provider Surgery; Emergency Provider Emergency Medicine; Visit Provider Surgery
PROC: 0FT44ZZ Resection of Gallbladder, Percutaneous Endoscopic Approach (ICD-10-PCS; CPT 47562; principal; 2022-01-22 09:00)
DX: K80.00 Calculus of gallbladder with acute cholecystitis without obstruction (principal); Z20.822 Contact with and (suspected) exposure to COVID-19; Z23 Encounter for immunization
CPT/HCPCS: 47562; 36415; 74177; 76705; 80053; 81003; 83690; 85025; 87502; 87635; 88304; 90686; 96361; 96374; 96375; 99218; 99285; J1100; J1170; J1885; J2250; J2270; J2405; J2795; J3010; Q9967

== ENCOUNTER 2022-05-08 20:12 | Emergency (ER) | payer MEDICAID, SELFPAY ==
--- NOTE | 2022-05-08 | ECG_ITS ---
Test Reason : chest pain Blood Pressure : / mmHG Vent. Rate : 068 BPM Atrial Rate : 068 BPM P-R Int : 154 ms QRS Dur : 090 ms QT Int : 406 ms P-R-T Axes : 040 027 010 degrees QTc Int : 431 ms Sinus rhythm with Premature atrial complexes with Aberrant conduction Otherwise normal ECG When compared with ECG of 30-AUG-2021 14:11, No significant change was found Referred By: Amber Ball Electronically Signed By:Karlos Wan
--- NOTE | ~2022-05-08 | XR_ITS ---
EXAMINATION: XR CHEST CLINICAL INFORMATION: Chest pain COMPARISON: None TECHNIQUE: Frontal view of the chest was obtained. FINDINGS: No significant abnormality is noted involving the heart, lungs, mediastinum, bony thorax or soft tissues. XR/XR chest 1V IMPRESSION: Unremarkable examination.
[2022-05-08 20:18] VITALS: BP 139/84; PULSE 70; O2SAT 100
[2022-05-08 20:34] VITALS: BP 113/77; PULSE 66; RESP 19; TEMP 36.8; O2SAT 100; BMI 28.8
--- NOTE | 2022-05-08 20:39 | ED_ITS ---
HPI - General Adult General Chief complaint: Dizziness Stated complaint: chest pain Time Seen by Provider: 05/08/22 20:14 History of Present Illness HPI narrative: Patient is a 26-year-old male presents today with having chest pain. The chest pain was fairly sudden in onset and happen after patient went for a walk. Associated with some dizziness some spinning sensation headache generalized malaise. No fever no chills. Chest pain is on the left side. Not associated with shortness of breath or diaphoresis. Sometimes worse with deep breath. Patient from home. No passing out. Positive spinning sensation. Worse with movement. Patient from home. Headache is nonspecific 8/10 gradual in onset not related to fever chills. No diaphoresis. Related Data Previous Rx's Medication Instructions Recorded ibuprofen 600 mg tablet 600 mg PO TID PRN abdominal pain 01/22/22 #30 tabs oxycodone 5 mg tablet 5 mg PO Q4H PRN pain (scale score 01/22/22 7-10) #24 tabs ibuprofen 400 mg tablet 400 mg PO Q6H PRN pain #20 tabs 05/08/22 meclizine 25 mg tablet 25 mg PO TID PRN dizziness #14 tabs 05/08/22 Allergies Allergy/AdvReac Type Severity Reaction Status Date / Time No Known Allergies Allergy Verified 05/08/22 20:37 Review of Systems Review of Systems: Positive chest pain Yes all other systems are reviewed and are negative PMFSH Past Medical History Attestation statement: The following information was validated with the patient. Medical History Achilles tendon sprain Depression Gallstones Surgical History Hx laparoscopic cholecystectomy Social History Social History Household Members: Family Housing: Apartment Do you presently have visiting nurse or other home services: No Alcohol intake: current Alcohol intake frequency: a few times a month Alcohol type: beer Patient Tobacco Use Status: Never used Tobacco Substance Use Type: Marijuana Advance Directives: No Advance Directives Information Provided: Yes service: No Current occupational status: employed Current occupation: rt handed/[employer] Physical Exam ED Vital Signs: Vital Signs - 24 hr 05/08/22 20:34 05/08/22 22:25 Temperature 98.2 F 98.0 F Pulse Rate 66 70 Respiratory Rate 19 16 Blood Pressure 113/77 112/61 Pulse Oximetry 100 99 Oxygen Delivery Method Room Air Room Air BMI result Body Mass Index 28.8 Appearance: Alert. Oriented X3. No acute distress. Eyes: Pupils equal, round and reactive to light. ENT: Pharynx normal. Neck: Normal inspection. Neck supple. No lymph nodes noted. No crepitus CVS: Normal heart rate and rhythm. Pulses normal. Normal S1 and S2 Respiratory: No respiratory distress. Breath sounds normal. No Wheezing. No rales Abdomen: Soft and nontender. No rigidity. No distention. good BS x4 Skin: Skin warm and dry. Normal skin color. Normal skin turgor. Extremities: No lower extremity edema. Neurovascular intact to all extremities. No Lacerations. No Rash Neuro: Oriented X 3. No motor deficit. No sensory deficit. Moving all exte rmities. No slurred speech Medications Administered Discontinued Medications Generic Name Dose Route Start Last Admin Trade Name Martq PRN Reason Stop Dose Admin Aspirin 324 mg 05/08/22 20:37 05/08/22 21:55 Aspirin 81 Mg Tab.Chew PO 05/08/22 20:38 324 mg ONCE ONE Administration Sodium Chloride 1,000 mls @ 999 mls/hr 05/08/22 20:45 05/08/22 21:55 Ns IV 05/08/22 21:45 999 mls/hr .Q1H1M DIPAK Administration Ketorolac Tromethamine 15 mg 05/08/22 20:38 05/08/22 21:56 Ketorolac Tromethamine 15 Mg/Ml Vial IVPUSH 05/08/22 20:39 15 mg ONCE ONE Administration Meclizine HCl 25 mg 05/08/22 20:37 05/08/22 21:55 Meclizine Hcl 25 Mg Tablet PO 05/08/22 20:38 25 mg ONCE ONE Administration Medical Decision Making Medical Decision Making MDM Narrative: Patient has multitude of complaints. Including having chest pain on 1 side that is sharp. Patient's cardiac enzymes are negative. Pain atypical for ACS he is 26 years old with no significant rest. My interpretation of patient's EKG showed a sinus rhythm heart rate is 70 significant sinus arrhythmia there is no acute ST segment elevation DE QRS QT within normal limits. History and labs are not consistent with ACS. Patient's heart score is less than 3. Patient's history is atypical. Patient's D-dimer is negative in the setting of low risk unlikely to have pulmonary emboli. Patient's chest x-ray showed no evidence of pneumonia no pneumothorax. Patient complaining of nonspecific dizziness which is kind of like spinning. Worse with movement. Question peripheral vertigo. Given a dose of meclizine with some Toradol or pain. Good resolution of patient's symptoms. No fever no chills no nuchal rigidity no evidence for meningitis. Will discharge patient home. Patient's flu RSV COVID all negative. Currently in stable condition Differential Diagnosis Chest pain, pneumothorax, rib fracture, pneumonia, ACS, PE, intracranial bleeding, meningitis, peripheral vertigo Lab Data MDM Lab Attestation statement: I reviewed the patient's lab results. 05/08/22 20:53 05/08/22 20:53 Labs: Lab Results 05/08/22 05/08/22 05/08/22 Range/Units 20:53 20:53 20:53 WBC 9.6 (4.8-10.8) X10*3/uL RBC 5.80 (4.60-5.80) X10*6/uL Hgb 13.6 L (14.0-18.0) g/dl Hct 42.5 (42.0-52.0) % MCV 73.3 L (80.0-98.0) fL MCH 23.4 L (27.0-33.0) pg MCHC 32.0 (31.0-36.0) g/dl RDW 14.9 (11.0-16.0) % Plt Count 274 (160-400) X10*3/uL MPV 10.0 (9.4-12.4) fL Immature Gran % (Auto) 0.2 (0.0-0.4) % Neut % (Auto) 70.7 (45-73) % Lymph % (Auto) 18.1 L (20-40) % [place] % (Auto) 9.8 (2-11) % Eos % (Auto) 0.7 (0-4) % Baso % (Auto) 0.5 (0-2) % Lymph # (Auto) 1.7 (1.2-4.9) X10*3/uL [place] # (Auto) 0.9 (0.1-1.2) X10*3/uL Eos # (Auto) 0.1 (0.0-0.4) X10*3/uL Baso # (Auto) 0.1 (0.0-0.2) X10*3/uL Abs Immat Gran (auto) 0.02 (0.00-0.03) X10*3/uL Absolute Neuts (auto) 6.8 (2.0-8.3) x10*3/uL Absolute Nucleated RBC 0.000 (0.0-0.012) X10*3/uL Nucleated RBC % (auto) 0.0 (0.0-0.2) /100WBC D-Dimer High Sensitivty 191 NG/ML Sodium 144 (135-145) mmol/L Potassium 3.8 (3.3-5.1) mmol/L Chloride 110 H (96-108) mmol/L Carbon Dioxide 26 (22-29) mmol/L Anion Gap 12 (12-20) BUN 6 L (9-16) mg/dL Creatinine 0.83 (0.5-1.4) mg/dL Estim Creat Clear Calc 146.5 Estimated GFR > 60 Random Glucose 92 (60-115) mg/dL Calcium 9.2 (8.4-10.2) mg/dL Total Bilirubin 0.8 (0.0-1.0) mg/dL Direct Bilirubin 0.2 (0.0-0.5) mg/dL AST 20 (5-37) U/L ALT 16 (0-40) U/L Alkaline Phosphatase 79 (39-117) U/L Total Creatine Kinase 715 H (38-174) U/L Troponin I High Sens (<3.5-35.0) ng/L Total Protein 6.9 (6.5-8.0) g/dL Albumin 4.2 (3.5-5.0) g/dL Influenza Type A (PCR) (Negative) Influenza Type B (PCR) (Negative) RSV RNA Qual (PCR) (Negative) SARS-CoV-2 RNA (RT-PCR) (Negative) 05/08/22 05/08/22 Range/Units 20:53 21:51 WBC (4.8-10.8) X10*3/uL RBC (4.60-5.80) X10*6/uL Hgb (14.0-18.0) g/dl Hct (42.0-52.0) % MCV (80.0-98.0) fL MCH (27.0-33.0) pg MCHC (31.0-36.0) g/dl RDW (11.0-16.0) % Plt Count (160-400) X10*3/uL MPV (9.4-12.4) fL Immature Gran % (Auto) (0.0-0.4) % Neut % (Auto) (45-73) % Lymph % (Auto) (20-40) % [place] % (Auto) (2-11) % Eos % (Auto) (0-4) % Baso % (Auto) (0-2) % Lymph # (Auto) (1.2-4.9) X10*3/uL [place] # (Auto) (0.1-1.2) X10*3/uL Eos # (Auto) (0.0-0.4) X10*3/uL Baso # (Auto) (0.0-0.2) X10*3/uL Abs Immat Gran (auto) (0.00-0.03) X10*3/uL Absolute Neuts (auto) (2.0-8.3) x10*3/uL Absolute Nucleated RBC (0.0-0.012) X10*3/uL Nucleated RBC % (auto) (0.0-0.2) /100WBC D-Dimer High Sensitivty NG/ML Sodium (135-145) mmol/L Potassium (3.3-5.1) mmol/L Chloride (96-108) mmol/L Carbon Dioxide (22-29) mmol/L Anion Gap (12-20) BUN (9-16) mg/dL Creatinine (0.5-1.4) mg/dL Estim Creat Clear Calc Estimated GFR Random Glucose (60-115) mg/dL Calcium (8.4-10.2) mg/dL Total Bilirubin (0.0-1.0) mg/dL Direct Bilirubin (0.0-0.5) mg/dL AST (5-37) U/L ALT (0-40) U/L Alkaline Phosphatase (39-117) U/L Total Creatine Kinase (38-174) U/L Troponin I High Sens < 3.5 (<3.5-35.0) ng/L Total Protein (6.5-8.0) g/dL Albumin (3.5-5.0) g/dL Influenza Type A (PCR) NEGATIVE (Negative) Influenza Type B (PCR) NEGATIVE (Negative) RSV RNA Qual (PCR) NEGATIVE (Negative) SARS-CoV-2 RNA (RT-PCR) NEGATIVE (Negative) Independent Interpretation I performed an independent interpretation of an: EKG and Plain X-Ray Interpretation: Sinus rhythm with PACs DE QRS QT within normal limits is no acute ST segment elevation noted Chest x-ray grossly negative for any acute evidence of pneumonia pneumothorax Radiology Impression Discussion of test interpretation with radiology: I have reviewed the radiologist's reading. Discharge Plan Discharge Clinical Impression: Dizziness, Chest pain, Vertigo Patient Disposition: Home, Self-Care Instructions: Chest Pain (ED), Vertigo (ED), Dizziness (ED) Prescriptions: New meclizine 25 mg tablet 25 mg PO TID PRN (Reason: dizziness) Qty: 14 0RF ibuprofen 400 mg tablet 400 mg PO Q6H PRN (Reason: pain) Qty: 20 0RF No Action oxycodone 5 mg tablet 5 mg PO Q4H PRN (Reason: pain (scale score 7-10)) Qty: 24 0RF Rx Instructions: Partial Fill upon patient request. Take 1-2 tablets every 4h as needed for pain. ibuprofen 600 mg tablet 600 mg PO TID PRN (Reason: abdominal pain) Qty: 30 0RF Referrals: [facility] [Primary Care Provider] -
[2022-05-08 20:58] LABS: Basophils Absolute Auto 0.1 X10*3/uL (0.0-0.2); Basophils Percent Auto 0.5 % (0-2); Eosinophils Absolute Auto 0.1 X10*3/uL (0.0-0.4); Eosinophils Percent Auto 0.7 % (0-4); Hematocrit 42.5 % (42.0-52.0); Hemoglobin 13.6 g/dl (14.0-18.0); Imm Gran Abs Auto 0.02 X10*3/uL (0.00-0.03); Imm Gran Pct Auto 0.2 % (0.0-0.4); Lymphocytes Absolute Auto 1.7 X10*3/uL (1.2-4.9); Lymphocytes Percent Auto 18.1 % (20-40); MANUAL DIFF FLAG NO; Mean Corpuscular Hemoglobin 23.4 pg (27.0-33.0); Mean Corpuscular Volume 73.3 fL (80.0-98.0); Monocytes Absolute Auto 0.9 X10*3/uL (0.1-1.2); Monocytes Percent Auto 9.8 % (2-11); Neutrophils Absolute Auto 6.8 x10*3/uL (2.0-8.3); Neutrophils Percent Auto 70.7 % (45-73); Platelet Count 274 X10*3/uL (160-400); Red Cell Distribution Width 14.9 % (11.0-16.0); White Blood Count 9.6 X10*3/uL (4.8-10.8)
[2022-05-08 21:06] LABS: D Dimer High Sensitivity 191 NG/ML
[2022-05-08 21:19] LABS: Alanine Aminotransferase 16 U/L (0-40); Albumin Level 4.2 g/dL (3.5-5.0); Alkaline Phosphatase 79 U/L (39-117); Anion Gap 12 (12-20); Aspartate Amino Transferase 20 U/L (5-37); Bilirubin Direct 0.2 mg/dL (0.0-0.5); Bilirubin Total 0.8 mg/dL (0.0-1.0); Blood Urea Nitrogen 6 mg/dL (9-16); Calcium 9.2 mg/dL (8.4-10.2); Carbon Dioxide 26 mmol/L (22-29); Chloride 110 mmol/L (96-108); Creatinine Clr Calc Pharmacy 146.5; Estimated Glomerular Filt Rate > 60; Glucose Random 92 mg/dL (60-115); Potassium 3.8 mmol/L (3.3-5.1); Sodium 144 mmol/L (135-145); Total Protein 6.9 g/dL (6.5-8.0)
[2022-05-08 21:35] LABS: Influenza A PCR NEGATIVE (Negative); Influenza B PCR NEGATIVE (Negative); Resp Syncy Virus RNA Qual PCR NEGATIVE (Negative); SARS COV2 PCR INHOUSE NEGATIVE (Negative)
[2022-05-08] MEDS: 0.9 % Sodium Chloride 1,000 ML 999 ML IV (21:55)
[2022-05-08] MEDS: Aspirin 81 MG TAB.CHEW 324 MG PO (21:55)
[2022-05-08] MEDS: Meclizine HCl 25 MG TABLET PO (21:55)
[2022-05-08] MEDS: Ketorolac Tromethamine 15 MG/ML VIAL IVPUSH (21:56)
[2022-05-08 22:16] LABS: Troponin-I High Sensitivity < 3.5 ng/L (<3.5-35.0)
[2022-05-08 22:25] VITALS: BP 112/61; PULSE 70; RESP 16; TEMP 36.7; O2SAT 99
== END 2022-05-08 23:34 | disposition home or self-care (01) ==
PROVIDERS: Emergency Provider Emergency Medicine Emergency Medical Services
DX: R42 Dizziness and giddiness (principal); R07.9 Chest pain, unspecified; Z20.822 Contact with and (suspected) exposure to COVID-19; Z20.828 Contact with and (suspected) exposure to other viral communicable diseases; F12.90 Cannabis use, unspecified, uncomplicated
CPT/HCPCS: 0241U; 36415; 71045; 80048; 80076; 82550; 84484; 85025; 85379; 93005; 96374; 99284; J1885

== ENCOUNTER 2022-05-14 16:59 | Outpatient (REF) | payer MEDICAID, SELFPAY ==
--- NOTE | ~2022-05-14 | XR_ITS ---
EXAMINATION: XR SHOULDER, RIGHT CLINICAL INFORMATION: Fall, injury. COMPARISON: None available. TECHNIQUE: 3 views. of the right shoulder. FINDINGS: The bones and soft tissues are normal. No fracture. Glenohumeral and acromioclavicular alignment is anatomic with normal joint space. No abnormal soft tissue calcifications. XR/XR shoulder RT min 2V IMPRESSION: Normal right shoulder.
== END 2022-05-14 17:00 | disposition home or self-care (01) ==
LOC: HO.XRAY 16:59
PROVIDERS: Visit Provider Registered Nurse
DX: S49.91XA Unspecified injury of right shoulder and upper arm, initial encounter (principal)
CPT/HCPCS: 73030

== ENCOUNTER 2022-08-07 13:04 | Emergency (ER) | payer MEDICAID, SELFPAY ==
--- NOTE | ~2022-08-07 | XR_ITS ---
EXAMINATION: XR HAND, LEFT CLINICAL INFORMATION: Pain fourth and fifth metacarpal bones COMPARISON: None available. TECHNIQUE: PA, lateral, and oblique views of the left hand. FINDINGS: The bones and soft tissues are normal. No fracture. Alignment is anatomic. Joint spaces are maintained. No erosions or soft tissue calcifications. XR/XR hand LT min 3V IMPRESSION: Normal left hand.
[2022-08-07 13:43] VITALS: BP 110/67; PULSE 65; RESP 16; TEMP 36.4; O2SAT 97; BMI 29.3
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
[2022-08-07] MEDS: Ketorolac Tromethamine 15 MG/ML VIAL 30 MG IM (15:19)
== END 2022-08-07 15:28 | disposition home or self-care (01) ==
PROVIDERS: Emergency Provider Emergency Medicine
DX: S00.11XA Contusion of right eyelid and periocular area, initial encounter (principal); S69.92XA Unspecified injury of left wrist, hand and finger(s), initial encounter; M79.642 Pain in left hand; H11.31 Conjunctival hemorrhage, right eye; Y04.2XXA Assault by strike against or bumped into by another person, initial encounter; Y93.9 Activity, unspecified; Y92.9 Unspecified place or not applicable; Y99.9 Unspecified external cause status
CPT/HCPCS: 73130; 96372; 99283; 99284; J1885

== ENCOUNTER 2023-01-25 21:14 | Emergency (ER) | payer OTHER, MEDICAID, SELFPAY ==
[2023-01-25 21:30] VITALS: BP 116/65; PULSE 66; RESP 20; TEMP 36.4; O2SAT 98; BMI 28.9
--- OUTSIDE RECORDS SUMMARY | 2023-01-26 00:46 | XMS_ITS | Continuity of Care Document ---
Author Name Unknown Organization [facility] ter Address [address] [place] [id number] Care Team Providers Care Juice Scaleman Name Role Phone Lillian Durán DO Primary Care Physician [place] [facility] [place] - 09/13/[address] [id number]- Encounter Diagnosis Chronic nausea(Final) - 09/13/21 Discharge Disposition: A-D/C Home Attending Physician: Tammy Horowitz MD Admitting Physician: Tammy Horowitz MD Referring Physician: Not on Staff, Referring MD Allergies, Adverse Reactions, Alerts No Known Allergies Vital Signs Most recent to oldest [Reference Range]: 1 2 3 Oxygen Saturation [94-100 %] 99 % (09/13/21 11:21 AM) 100 % (09/13/21 9:23 AM) 100 % (09/13/21 7:26 AM) Pulse Rate [55-90 bpm] 72 bpm (09/13/21 11:21 AM) 70 bpm (09/13/21 9:23 AM) 69 bpm (09/13/21 7:26 AM) Blood Pressure [90-138/55-84 mm Hg] 131/78mm Hg (09/13/21 11:21 AM) 135/80mm Hg (09/13/21 9:23 AM) 138/79mm Hg (09/13/21 7:26 AM) Respiratory Rate [16-30 br/min] 18 br/min (09/13/21 11:21 AM) 18 br/min (09/13/21 9:23 AM) 18 br/min (09/13/21 7:26 AM) Temperature [96.8-100.4 DegF] 97.3 DegF (09/13/21 11:21 AM) 97.3 DegF (09/13/21 9:23 AM) 97.4 DegF (09/13/21 7:26 AM) Mode of Delivery (Oxygen) Room air (09/13/21 11:21 AM) Room air (09/13/21 9:23 AM) Room air (09/13/21 7:26 AM) Blood pressure sites Arm, right (09/13/21 11:21 AM) Arm, right (09/13/21 9:23 AM) Arm, right (09/13/21 7:26 AM) Temperature Route Oral (09/13/21 11:21 AM) Oral (09/13/21 9:23 AM) Oral (09/13/21 7:26 AM)
[2023-01-26 01:11] VITALS: BP 131/56; PULSE 72; RESP 16; TEMP 36.7; O2SAT 99
--- NOTE | 2023-01-26 01:20 | ED_ITS ---
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 He denies any numbness, tingling, weakness, bladder or bowel incontinence pain His pain does not radiate is located to the mid back Denies any history of back problems Denies any chest pain, abdominal pain, nausea vomiting, diarrhea There were no falls or trauma Related Data Previous Rx's Medication Instructions Recorded ibuprofen 600 mg tablet 600 mg PO TID PRN abdominal pain 01/22/22 #30 tabs oxycodone 5 mg tablet 5 mg PO Q4H PRN pain (scale score 01/22/22 7-10) #24 tabs ibuprofen 400 mg tablet 400 mg PO Q6H PRN pain #20 tabs 05/08/22 meclizine 25 mg tablet 25 mg PO TID PRN dizziness #14 tabs 05/08/22 ketorolac 10 mg tablet 10 mg PO TID PRN pain 5 days #15 08/07/22 tabs cyclobenzaprine 10 mg tablet 10 mg PO TID PRN muscle spasm #20 01/26/23 tabs ibuprofen 600 mg tablet 600 mg PO Q6H PRN pain #20 tabs 01/26/23 Allergies Allergy/AdvReac Type Severity Reaction Status Date / Time No Known Allergies Allergy Verified 08/07/22 13:43 Review of Systems Constitutional: Constitutional: Denies chills and Denies fever(s) Eyes: Eyes: Denies blurry vision ENT: Denies sore throat Cardiovascular: Cardiovascular: Denies chest pain and Denies dyspnea Respiratory: Respiratory: Denies cough and Denies dyspnea Gastrointestinal: Gastrointestinal: Denies abdominal pain, Denies nausea and Denies vomiting Genitourinary: Genitourinary: Denies flank pain Musculoskeletal: Musculoskeletal: Reports back pain, Denies muscle weakness, Denies numbness, Denies radiating pain into limb, Denies stiffness and Denies tingling Integumentary/Breasts: Skin/Breast: Denies rash Neurologic: Denies numbness and Denies tingling Psychiatric: Psychiatric: Denies depression PMFSH Past Medical History Medical History Achilles tendon sprain Depression Gallstones Surgical History Hx laparoscopic cholecystectomy Social History Social History Household Members: Family Housing: Apartment Do you presently have visiting nurse or other home services: No Alcohol intake: current Alcohol intake frequency: a few times a month Alcohol type: beer Patient Tobacco Use Status: Never used Tobacco Substance Use Type: Marijuana Advance Directives: No Advance Directives Information Provided: Yes service: No Current occupational status: employed Current occupation: rt [employer] Physical Exam ED Vital Signs: Vital Signs - 24 hr 01/25/23 21:30 01/26/23 01:11 Temperature 97.5 F 98.0 F Pulse Rate 66 72 Respiratory Rate 20 16 Blood Pressure 116/65 131/56 L Pulse Oximetry 98 99 Oxygen Delivery Method Room Air Room Air BMI result Body Mass Index 28.9 Const General: healthy appearing, comfortable, no acute distress, alert and awake Nutritional Appearance: well nourished Orientation/consciousness: patient oriented x3 HENMT Head: Yes normocephalic and Yes atraumatic Eyes Eyelids: Yes eyelids normal Conjunctivae: conjunctivae normal Sclerae: sclerae normal Corneas: corneas normal Pupils: Equal, round and reactive pupils present EOM: EOMs intact bilaterally Neck Neck: Yes full ROM Resp Effort & Inspection: normal respiratory effort, able to speak in complete sentences and not labored GI Inspection: No distended Palpation (GI): Soft to palpation, not firm, nontender, no guarding and not rigid Back/Spine/Pelvis Other: Patient has vague tenderness across the lumbar paraspinous region. No focal vertebral tenderness. No step-off deformities. Negative straight leg raise Skin General skin exam: elasticity normal Neuro General: patient oriented x3 and deep tendon reflexes 2+ bilaterally Cranial nerves: Yes Equal, round and reactive pupils present and Yes Bilaterally intact EOM present Cognition (Neuro): normal cognition Motor exam (neuro): 5/5 motor strength present throughout Extrem Other: Moving all extremities well without any obvious deformities Medical Decision Making Medical Decision Making MDM Narrative: 27-year-old male presents for evaluation of back pain after bending over working on car tires of the yesterday. History and exam consistent with a muscle strain. No red flags or warning signs for cauda equina syndrome, there was no significant trauma. I do not see any indication for emergent imaging at this time. Patient given Toradol and cyclobenzaprine, will discharge with cyclobenzaprine and ibuprofen. Differential Diagnosis Differential Diagnoses: The differential diagnosis associated with the presentation includes Muscle strain Radiculopathy Upper back pain Back pain Discharge Plan Discharge Clinical Impression: Low back strain Patient Disposition: Home, Self-Care Instructions: Acute Low Back Pain (ED) Additional Instructions: Likely related to muscle strain. Use ibuprofen 600 mg every 6 hours as needed for pain. Use cyclobenzaprine as needed for muscle spasms. You may use warm compresses needed for muscle spasms Follow-up with your primary doctor Return for new or worsening symptoms Prescriptions: New cyclobenzaprine 10 mg tablet 10 mg PO TID PRN (Reason: muscle spasm) Qty: 20 0RF ibuprofen 600 mg tablet 600 mg PO Q6H PRN (Reason: pain) Qty: 20 0RF No Action meclizine 25 mg tablet 25 mg PO TID PRN (Reason: dizziness) Qty: 14 0RF ibuprofen 400 mg tablet 400 mg PO Q6H PRN (Reason: pain) Qty: 20 0RF oxycodone 5 mg tablet 5 mg PO Q4H PRN (Reason: pain (scale score 7-10)) Qty: 24 0RF Rx Instructions: Partial Fill upon patient request. Take 1-2 tablets every 4h as needed for pain. ibuprofen 600 mg tablet 600 mg PO TID PRN (Reason: abdominal pain) Qty: 30 0RF ketorolac 10 mg tablet 10 mg PO TID PRN (Reason: pain) 5 Days Qty: 15 0RF Stand Alone Forms: Work/School Release
[2023-01-26] MEDS: Cyclobenzaprine HCl 10 MG TABLET PO (01:36)
[2023-01-26] MEDS: Ketorolac Tromethamine 30 MG/ML VIAL IM (01:36)
== END 2023-01-26 01:43 | disposition home or self-care (01) ==
PROVIDERS: Emergency Provider Internal Medicine
DX: S39.012A Strain of muscle, fascia and tendon of lower back, initial encounter (principal); X50.0XXA Overexertion from strenuous movement or load, initial encounter; Y93.89 Activity, other specified; Y92.59 Other trade areas as the place of occurrence of the external cause; Y99.0 Civilian activity done for income or pay
CPT/HCPCS: 96372; 99283; 99284; J1885